=== PATIENT | female | born 1940 | race Caucasian/White ===

== ENCOUNTER → 2019-12-14 10:13 | Outpatient (BNVA) | payer MEDICARE, OTHER, SELFPAY | PROVIDERS: Family Provider Family Medicine; PCP Family Medicine; Visit Provider Anesthesiology | DX: M17.11 Unilateral primary osteoarthritis, right knee (principal); M47.816 Spondylosis without myelopathy or radiculopathy, lumbar region; M51.37 Other intervertebral disc degeneration, lumbosacral region; M47.9 Spondylosis, unspecified; S22.000S Wedge compression fracture of unspecified thoracic vertebra, sequela; S32.001D Stable burst fracture of unspecified lumbar vertebra, subsequent encounter for fracture with routine healing; X58.XXXS Exposure to other specified factors, sequela; X58.XXXD Exposure to other specified factors, subsequent encounter; Z79.891 Long term (current) use of opiate analgesic | CPT/HCPCS: 20610; 77003; G0463; J2001; J7325 ==

== ENCOUNTER → 2020-01-22 17:22 | Outpatient (BNVA) | payer MEDICARE, OTHER, SELFPAY | PROVIDERS: Family Provider Family Medicine; PCP Family Medicine; Visit Provider Family Medicine | DX: I10 Essential (primary) hypertension (principal); G25.81 Restless legs syndrome; M79.89 Other specified soft tissue disorders | CPT/HCPCS: 80048 ==

== ENCOUNTER → 2020-02-08 13:58 | Outpatient (BNVA) | payer MEDICARE, OTHER, SELFPAY | PROVIDERS: Family Provider Family Medicine; PCP Family Medicine; Visit Provider Anesthesiology | DX: G89.29 Other chronic pain (principal); M17.11 Unilateral primary osteoarthritis, right knee; M47.816 Spondylosis without myelopathy or radiculopathy, lumbar region; M47.9 Spondylosis, unspecified; K59.03 Drug induced constipation; T40.2X5A Adverse effect of other opioids, initial encounter; X58.XXXA Exposure to other specified factors, initial encounter; Z79.891 Long term (current) use of opiate analgesic | CPT/HCPCS: 99214 ==

== ENCOUNTER → 2020-05-26 09:49 | Outpatient (BNVA) | payer MEDICARE, OTHER, SELFPAY | PROVIDERS: Family Provider Family Medicine; PCP Family Medicine; Visit Provider Nurse Practitioner Family | DX: N39.0 Urinary tract infection, site not specified (principal); M25.552 Pain in left hip | CPT/HCPCS: 73502; 81000 ==

== ENCOUNTER → 2020-06-05 14:24 | Outpatient (BNVA) | payer MEDICARE, OTHER, SELFPAY | PROVIDERS: Family Provider Family Medicine; PCP Family Medicine; Visit Provider Anesthesiology | DX: Z11.59 Encounter for screening for other viral diseases (principal) | CPT/HCPCS: 87635 ==

== ENCOUNTER → 2020-07-18 10:15 | Outpatient (BNVA) | payer MEDICARE, OTHER, SELFPAY | PROVIDERS: Family Provider Family Medicine; PCP Family Medicine; Visit Provider Anesthesiology | DX: M17.11 Unilateral primary osteoarthritis, right knee (principal); M47.816 Spondylosis without myelopathy or radiculopathy, lumbar region; M51.37 Other intervertebral disc degeneration, lumbosacral region; S22.000S Wedge compression fracture of unspecified thoracic vertebra, sequela; X58.XXXS Exposure to other specified factors, sequela; S32.001D Stable burst fracture of unspecified lumbar vertebra, subsequent encounter for fracture with routine healing; X58.XXXD Exposure to other specified factors, subsequent encounter; Z79.891 Long term (current) use of opiate analgesic | CPT/HCPCS: 99214 ==

== ENCOUNTER → 2020-08-28 18:00 | Outpatient (BNVA) | payer MEDICARE, OTHER, SELFPAY | PROVIDERS: Family Provider Family Medicine; PCP Family Medicine; Visit Provider Family Medicine | DX: I10 Essential (primary) hypertension (principal); R53.83 Other fatigue; I95.1 Orthostatic hypotension; E56.9 Vitamin deficiency, unspecified; S22.000S Wedge compression fracture of unspecified thoracic vertebra, sequela; R63.4 Abnormal weight loss; R53.82 Chronic fatigue, unspecified | CPT/HCPCS: 80053; 80061; 82607; 82652; 84443; 85025 ==

== ENCOUNTER → 2020-09-10 10:44 | Outpatient (BNVA) | payer MEDICARE, OTHER, SELFPAY | PROVIDERS: Family Provider Family Medicine; PCP Family Medicine; Visit Provider Anesthesiology | DX: G89.29 Other chronic pain (principal); M25.561 Pain in right knee; M47.816 Spondylosis without myelopathy or radiculopathy, lumbar region; S22.000S Wedge compression fracture of unspecified thoracic vertebra, sequela; S32.001D Stable burst fracture of unspecified lumbar vertebra, subsequent encounter for fracture with routine healing; M51.37 Other intervertebral disc degeneration, lumbosacral region; M47.9 Spondylosis, unspecified; X58.XXXS Exposure to other specified factors, sequela; X58.XXXD Exposure to other specified factors, subsequent encounter; Z79.891 Long term (current) use of opiate analgesic | CPT/HCPCS: 99214 ==

== ENCOUNTER → 2020-09-19 13:27 | Outpatient (BNVA) | payer MEDICARE, OTHER, SELFPAY | PROVIDERS: Family Provider Family Medicine; PCP Family Medicine; Referring Provider Family Medicine; Visit Provider Family Medicine | DX: D50.8 Other iron deficiency anemias (principal) | CPT/HCPCS: 83540; 85007; 85018; 85027 ==

== ENCOUNTER → 2020-10-15 11:29 | Outpatient (BNVA) | payer MEDICARE, OTHER, SELFPAY | PROVIDERS: Family Provider Family Medicine; PCP Family Medicine; Visit Provider Family Medicine | DX: D50.8 Other iron deficiency anemias (principal); K59.03 Drug induced constipation; T40.2X5A Adverse effect of other opioids, initial encounter; I10 Essential (primary) hypertension; Z46.89 Encounter for fitting and adjustment of other specified devices; M47.9 Spondylosis, unspecified | CPT/HCPCS: 85025 ==

== ENCOUNTER → 2020-11-06 10:45 | Outpatient (BNVA) | payer MEDICARE, OTHER, SELFPAY | PROVIDERS: Family Provider Family Medicine; PCP Family Medicine; Visit Provider Nurse Practitioner | DX: G89.29 Other chronic pain (principal); M47.816 Spondylosis without myelopathy or radiculopathy, lumbar region; M25.561 Pain in right knee; K59.03 Drug induced constipation; T40.2X5A Adverse effect of other opioids, initial encounter; Z79.891 Long term (current) use of opiate analgesic | CPT/HCPCS: 99213 ==

== ENCOUNTER → 2021-01-10 08:11 | Outpatient (BNVA) | payer MEDICARE, OTHER, SELFPAY | PROVIDERS: Family Provider Family Medicine; PCP Family Medicine; Visit Provider Nurse Practitioner | DX: G89.29 Other chronic pain (principal); M51.37 Other intervertebral disc degeneration, lumbosacral region; M47.816 Spondylosis without myelopathy or radiculopathy, lumbar region; T40.2X5A Adverse effect of other opioids, initial encounter; X58.XXXA Exposure to other specified factors, initial encounter; S32.001D Stable burst fracture of unspecified lumbar vertebra, subsequent encounter for fracture with routine healing; X58.XXXD Exposure to other specified factors, subsequent encounter; S22.000S Wedge compression fracture of unspecified thoracic vertebra, sequela; X58.XXXS Exposure to other specified factors, sequela; M17.11 Unilateral primary osteoarthritis, right knee; Z79.891 Long term (current) use of opiate analgesic | CPT/HCPCS: 99212 ==

== ENCOUNTER → 2021-02-07 09:21 | Outpatient (BNVA) | payer MEDICARE, OTHER, SELFPAY | PROVIDERS: Family Provider Family Medicine; PCP Family Medicine; Visit Provider Anesthesiology | DX: G89.29 Other chronic pain (principal); M47.816 Spondylosis without myelopathy or radiculopathy, lumbar region; M51.37 Other intervertebral disc degeneration, lumbosacral region; M17.11 Unilateral primary osteoarthritis, right knee; S22.000S Wedge compression fracture of unspecified thoracic vertebra, sequela; X58.XXXS Exposure to other specified factors, sequela; S32.001D Stable burst fracture of unspecified lumbar vertebra, subsequent encounter for fracture with routine healing; X58.XXXD Exposure to other specified factors, subsequent encounter; Z79.891 Long term (current) use of opiate analgesic | CPT/HCPCS: 99214 ==

== ENCOUNTER → 2021-04-08 10:18 | Outpatient (BNVA) | payer MEDICARE, OTHER, SELFPAY | PROVIDERS: Family Provider Family Medicine; PCP Nurse Practitioner Family; Visit Provider Anesthesiology | DX: G89.29 Other chronic pain (principal); M47.816 Spondylosis without myelopathy or radiculopathy, lumbar region; M51.37 Other intervertebral disc degeneration, lumbosacral region; M17.11 Unilateral primary osteoarthritis, right knee; M47.9 Spondylosis, unspecified; S32.001D Stable burst fracture of unspecified lumbar vertebra, subsequent encounter for fracture with routine healing; S22.000S Wedge compression fracture of unspecified thoracic vertebra, sequela; X58.XXXD Exposure to other specified factors, subsequent encounter; X58.XXXS Exposure to other specified factors, sequela; Z79.891 Long term (current) use of opiate analgesic | CPT/HCPCS: 99214 ==

== ENCOUNTER → 2021-06-06 10:48 | Outpatient (BNVA) | payer MEDICARE, OTHER, SELFPAY | PROVIDERS: Family Provider Family Medicine; PCP Nurse Practitioner Family; Visit Provider Anesthesiology | DX: G89.29 Other chronic pain (principal); M47.816 Spondylosis without myelopathy or radiculopathy, lumbar region; M51.37 Other intervertebral disc degeneration, lumbosacral region; M47.9 Spondylosis, unspecified; M17.11 Unilateral primary osteoarthritis, right knee; Z79.891 Long term (current) use of opiate analgesic | CPT/HCPCS: 99214 ==

== ENCOUNTER 2021-08-05 11:54 | Outpatient (CLI) | payer MEDICARE, OTHER, SELFPAY ==
--- NOTE | 2021-08-05 12:02 | MM_ITS ---
WS: [id number] BILATERAL DIGITAL SCREENING MAMMOGRAPHY WITH CAD CLINICAL INFORMATION: SCREENING HISTORY: Screening mammogram. No current complaints. COMPARISON: TECHNIQUE: Bilateral CC and MLO views. FINDINGS: The breasts are composed of heterogeneous fibroglandular density tissue, which can limit the detectio n of small underlying mass lesions. No suspicious mass, asymmetry, calcifications, or architectural d istortion. No evidence of malignancy. Vascular calcification. A few punctate calcifications. MM/[place] [id number] IMPRESSION: BI-RADS: 2-Benign FOLLOW UP: 1 Year Follow-up Recommend return to annual screening mammography.
== END 2021-08-05 11:55 | disposition home or self-care (01) ==
LOC: RADSHAW 11:58
PROVIDERS: PCP Nurse Practitioner Family; Visit Provider Obstetrics & Gynecology
DX: G89.29 Other chronic pain (principal); M47.816 Spondylosis without myelopathy or radiculopathy, lumbar region; M51.37 Other intervertebral disc degeneration, lumbosacral region; M17.11 Unilateral primary osteoarthritis, right knee; S22.000S Wedge compression fracture of unspecified thoracic vertebra, sequela; X58.XXXS Exposure to other specified factors, sequela; S32.001D Stable burst fracture of unspecified lumbar vertebra, subsequent encounter for fracture with routine healing; X58.XXXD Exposure to other specified factors, subsequent encounter; Z79.891 Long term (current) use of opiate analgesic; Z12.31 Encounter for screening mammogram for malignant neoplasm of breast
CPT/HCPCS: 77067; 99214

== ENCOUNTER 2021-08-23 14:42 | Inpatient (IN) | payer MEDICARE, OTHER, SELFPAY ==
[2021-08-23] VITALS (15 sets, daily range): BP systolic 101–214; BP diastolic 77–104; PULSE 88–112; RESP 16–20; TEMP 36.6–37; O2SAT 91–100; BMI 22.7; BMI 26.7
--- NOTE | 2021-08-23 14:49 | XRR_ITS ---
PROCEDURE INFORMATION: Exam: XR Chest Exam date and time: 08/23/2021 2:49 PM Age: 80 years old Clinical indication: Cough and dyspnea; Additional info: Dyspnea/cough TECHNIQUE: Imaging protocol: XR of the chest. Views: 1 view. COMPARISON: [place] Thoracic [place] IV* [id number] 12/12/2018 12:55 PM FINDINGS: Lungs: No consolidative pulmonary infiltrates are noted. Pleural spaces: No pleural effusion. No pneumothorax. Heart/Mediastinum: No cardiomegaly. Vasculature: Tortuous, atherosclerotic thoracic aorta. Bones/joints: Old healed fracture of the proximal right humerus. Degenerative spine changes are noted. XR/XR chest 1V portable [id number] IMPRESSION: No acute cardiopulmonary disease demonstrated.
--- NOTE | 2021-08-23 14:49 | XRR_ITS ---
PROCEDURE INFORMATION: Exam: XR Left Hip Exam date and time: 08/23/2021 2:49 PM Age: 80 years old Clinical indication: Injury or trauma; Fall; Blunt trauma (contusions or hematomas); Left; Hip; Additional info: Pain fall TECHNIQUE: Imaging protocol: XR Left hip. Views: 2 or 3 views hip with pelvis when performed. COMPARISON: CR Pelvis AP 1 or 2 views* [id number] 06/17/2017 11:00 AM FINDINGS: Bones/joints: Acute intertrochanteric fracture of the left hip. The fracture appears mildly comminuted. Major fracture fragments are in varus alignment. No hip joint dislocation. Soft tissues: Unremarkable. XR/XR hip LT 2-3V wo/w pel* [id number] IMPRESSION: Acute intertrochanteric fracture of the left hip.
--- NOTE | 2021-08-23 14:49 | ECG_ITS ---
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 Measurements Intervals [place] Rate: 105 P: 72 MN: 204 QRS: 52 QRSD: 98 T: 82 QT: 315 QTc: 417 Interpretive Statements SINUS TACHYCARDIA No previous ECG available for comparison Electronically Signed On 08-23-2021 20:57:20 CDT by Lázaro Escobedo M.D. [id number]
--- NOTE | 2021-08-23 14:50 | ED_ITS ---
HPI - Fall General: Chief Complaint: Fall Stated Complaint: LEFT HIP PAIN S/P FALL Time Seen by Provider: 08/23/21 14:45 History of Present Illness: HPI Narrative: 80-year-old female presents emergency room complaining of left hip pain. She was at home moving around her kitchen with a walker stumbled with her walker and fell landing on her left side he had severe sharp pain in her left hip after that she presents here in a right lateral recumbent position to the c-collar and oxygen. She is satting normally on room air when the oxygen is removed she denies striking her denies is incontinent she has not had any chest pain she denies any other injuries no previous injuries to the affected hip. complaint: fall Onset (ago): minute(s) Fall from: standing Fall witnessed: no Place fall occurred: home Loss of consciousness: None Prolonged down time: no Symptoms prior to fall: none Context: tripped/slipped Location of injury: pelvis (Left hip) Severity: moderate Associated symptoms-after fall: Denies abdominal pain, chest pain, confusion, difficulty walking, headache(s), hematuria, lightheadedness, neck pain, numbness, short of breath, vertigo or weakness Review of Systems Const: Denies: fever(s), chills, body aches, change in appetite, fatigue or malaise ENMT: Denies: throat pain, ear or mastoid pain, nasal discharge or nasal congestion Card: Denies: chest pain or lightheadedness Resp: Denies: dyspnea, productive cough or non-productive cough GI: Denies: abdominal pain : Denies: hematuria Musc: Denies: neck pain Skin/Breast: Denies: rash or pruritus Neuro: Denies: headache(s), difficulty walking, vertigo or confusion PFSH ED PFSH: Medical History Acute lumbar back pain Chronic low back pain Chronic pain of right knee Encounter for long-term opiate analgesic use Hypertension Localized osteoarthritis of right knee Lumbar spondylosis 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, lumbosacral region Stable burst fracture of unspecified lumbar vertebra, subsequent encounter for fracture with routine healing Wedge compression fracture of unspecified thoracic vertebra, sequela Surgical History H/O shoulder surgery Family History Other No pertinent family history Social History Smoking and tobacco status: never smoked Second hand smoke exposure: No Alcohol intake: never History of recent travel: No Female Reproductive History: Spontaneous abortions: No Physical Exam Const: COMMON NORMALS: no acute distress GENERAL APPEARANCE: cooperative and comfortable ORIENTATION/CONSCIOUSNESS: Yes awake, Yes oriented to person, Yes oriented to place and Yes oriented to time HENMT: COMMON NORMALS: normocephalic, atraumatic and hearing grossly normal bilaterally HEAD & SCALP: normocephalic and atraumatic Neck/C-Spine: COMMON NORMALS: no JVD Resp: COMMON NORMALS: normal respiratory effort, No retractions, No use of accessory muscles and clear to auscultation bilaterally AUSCULTATION: clear to auscultation bilaterally Cardio: COMMON NORMALS: no JVD, regular rate, regular rhythm and No murmurs present (Cardio) RATE: regular rate RHYTHM: regular rhythm GI: COMMON NORMALS: Soft to palpation and No hepatosplenomegaly present AUSCULTATION: Yes normoactive bowel sounds PALPATION: Yes Soft to palpation, No Tenderness to palpation present (GI), No Guarding due to palpation present (GI) and Yes No hepatosplenomegaly present Extremity: COMMON NORMALS: normal to inspection, capillary refill normal, no clubbing, cyanosis or edema, no calf tenderness and no pedal edema Neuro: SENSORIUM/ORIENTATION: Yes oriented to person, Yes oriented to place and Yes oriented to time Skin: COMMON NORMALS: no rashes or lesions noted GENERAL SKIN EXAM: no rashes or lesions noted Course Vital Signs: Vital signs: Vital Signs Temperature 99.0 F 08/25/21 07:21 Pulse Rate 87 08/25/21 07:21 Respiratory Rate 17 08/25/21 07:21 Blood Pressure 136/68 08/25/21 07:21 Pulse Oximetry 93 08/25/21 07:21 MDM - Fall MDM Narrative: Medical decision making narrative: Initial x-ray there appears to be a greater trochanter fracture. Its not in the file but the first x-rays we took she was laying in her right lateral recumbent position would not move because of discomfort we given her pain medicine but her blood pressure dropped the very first x-ray of her hip there appeared to be an inferior and superior pubic ramus fracture however the is a reviewed the chart and signed off I cannot find that film. I was suspicious of an intertrochanteric fracture because of the large greater trochanteric fracture that I could see CT was done which confirmed the fracture. Patient has been admitted to Dr. Arboleda and is consulted to Ortho. Lab Data: Labs: Lab Results 08/23/21 08/23/21 08/23/21 15:18 15:18 15:18 WBC 14.8 10^3/uL H 10 ^3/uL (4.0-10.0) RBC 3.59 10^6/uL L 10 ^6/uL (4.1-5.3) Hgb 9.2 g/dL L g/dL (11.5-15.3) Hct 30.0 % L % (37.0-47.0) MCV 83.6 fl fl (81-99) MCH 25.6 pg L pg (28.0-34.0) MCHC 30.7 g/dL g/dL (30.0-36.0) RDW 12.7 % % (12.1-15.1) Plt Count 381 10^3/cmm 10^3 /cmm (130-400) MPV 9.1 fL fL (7.4-10.4) Neut % (Auto) 84.9 % % Lymph % (Auto) 6.8 % % [place] % (Auto) 6.3 % % Eos % (Auto) 1.1 % % Baso % (Auto) 0.3 % % Reticulocyte % (Au to) 2.3 % H % (0.5-2.0) Neut # (Auto) 12.57 10^3/uL H 1 0^3/uL (1.8-7.7) Lymph # (Auto) 1.0 10^3/uL 10^3/ uL (0.8-4.8) [place] # (Auto) 0.9 10^3/uL 10^3/ uL (0.2-0.9) Eos # (Auto) 0.2 10^3/uL 10^3/ uL (0.0-0.8) Baso # (Auto) 0.1 10^3/uL 10^3/ uL (0.0-0.1) Nucleated RBC % (a uto) 0 % % Nucleated RBCs # 0.0 /100WBC /100W BC Sodium 129 mmol/L L mmol /L (136-145) Potassium 4.1 mmol/L mmol/L (3.5-5.1) Chloride 97 mmol/L L mmol/ L (98-107) Carbon Dioxide 23 mmol/L mmol/L (22-29) Anion Gap 13.1 (5-19) BUN 19 mg/dL mg/dL (8-23) Creatinine 0.7 mg/dL mg/dL (0.5-0.9) GFR Calculation Not Reportable Glucose 142 mg/dL H mg/dL (65-115) Calculated Osmolal ity 273 mOsm/kg L mOs m/kg (285-295) Calcium 8.8 mg/dL mg/dL (8.5-10.5) Iron Ferritin Total Bilirubin 0.2 mg/dL mg/dL (0.15-1.2) AST 21 U/L U/L (0-32) ALT 15 U/L U/L (0-33) Alkaline Phosphata se 68 IU/L IU/L (35-105) NT-Pro-B Natriuret Pep Total Protein 5.9 g/dL L g/dL (6.6-8.7) Albumin 3.7 g/dL g/dL (3.5-5.2) Globulin 2.2 g/dL g/dL (1.3-4.6) Vitamin B12 Folate Urine Color Urine Appearance Urine pH Ur Specific Gravit y Urine Protein Urine Glucose (UA) Urine Ketones Urine Blood Urine Nitrate Urine Bilirubin Urine Urobilinogen Ur Leukocyte Patricia ase Urine RBC Urine WBC Ur Squamous Epith Cells Amorphous Sediment Urine Bacteria 08/23/21 08/23/21 08/23/21 15:18 15:18 16:20 WBC RBC Hgb Hct MCV MCH MCHC RDW Plt Count MPV Neut % (Auto) Lymph % (Auto) [place] % (Auto) Eos % (Auto) Baso % (Auto) Reticulocyte % (Au to) Neut # (Auto) Lymph # (Auto) [place] # (Auto) Eos # (Auto) Baso # (Auto) Nucleated RBC % (a uto) Nucleated RBCs # Sodium Potassium Chloride Carbon Dioxide Anion Gap BUN Creatinine GFR Calculation Glucose Calculated Osmolal ity Calcium Iron 21 ug/dL L ug/dL (37-145) Ferritin 14 ng/mL L ng/mL (15-150) Total Bilirubin AST ALT Alkaline Phosphata se NT-Pro-B Natriuret Pep 262 pg/mL pg/mL (0-450) Total Protein Albumin Globulin Vitamin B12 434 pg/mL pg/mL (232-1245) Folate 5.1 ng/mL ng/mL (4.8-37.3) Urine Color Yellow (Yellow) Urine Appearance Cloudy (CLEAR) Urine pH 6 (5-7) Ur Specific Gravit y 1.015 (1.005-1.030) Urine Protein Neg (Negative) Urine Glucose (UA) Norm (Normal) Urine Ketones Negative (Negative) Urine Blood Neg (Negative) Urine Nitrate Positive H (Negative) Urine Bilirubin Neg (Negative) Urine Urobilinogen Norm mg/dL mg/dL (Negative) Ur Leukocyte Patricia ase Negative (Negative) Urine RBC None /hpf /hpf (0-2) Urine WBC 25-40 /hpf H /hpf (0-5) Ur Squamous Epith Cells 0-4 /hpf H /hpf (0-5) Amorphous Sediment Not Reportable Urine Bacteria 4+ /hpf H /hpf (NONE) Discharge Plan Discharge Patient Disposition: Admitted As Inpatient Admit Provider: Juan Francisco Callahan Clinical Impression: Fracture of hip, left, closed, Fall Condition: Stable Coding Level of Care Code ED Freight Clerk for Chg Fwd Exam Comprehensive
[2021-08-23] MEDS: fentaNYL 50 mcg/mL INJ 2mL IVP (15:10)
[2021-08-23 15:21] LABS: Basophils # 0.1 10^3/uL (0.0-0.1); Basophils % 0.3 %; Eosinophils # 0.2 10^3/uL (0.0-0.8); Eosinophils % 1.1 %; Hemoglobin 9.2 g/dL (11.5-15.3); Lymphocytes % 6.8 %; Mean Corpuscular HGB Conc 30.7 g/dL (30.0-36.0); Mean Corpuscular Hemoglobin 25.6 pg (28.0-34.0); Mean Corpuscular Volume 83.6 fl (81-99); Mean Platelet Volume 9.1 fL (7.4-10.4); Monocytes # 0.9 10^3/uL (0.2-0.9); Monocytes % 6.3 %; Neutrophils # 12.57 10^3/uL (1.8-7.7); Neutrophils % 84.9 %; Nucleated Red Blood Cells % 0 %; Platelet Count 381 10^3/cmm (130-400); Red Blood Count 3.59 10^6/uL (4.1-5.3); Red Cell Distribution Width 12.7 % (12.1-15.1); White Blood Count 14.8 10^3/uL (4.0-10.0)
[2021-08-23] MEDS: sodium chloride 0.9% 500 ML 999 ML IV (15:43)
[2021-08-23] MEDS: fentaNYL 50 mcg/mL INJ 2mL 25 MCG IVP (15:44)
[2021-08-23 15:48] LABS: Alanine Aminotransferase 15 U/L (0-33); Albumin Level 3.7 g/dL (3.5-5.2); Alkaline Phosphatase 68 IU/L (35-105); Anion Gap 13.1 (5-19); Aspartate Amino Transferase 21 U/L (0-32); Blood Urea Nitrogen 19 mg/dL (8-23); Calcium 8.8 mg/dL (8.5-10.5); Carbon Dioxide 23 mmol/L (22-29); Chloride 97 mmol/L (98-107); Globulin 2.2 g/dL (1.3-4.6); Glucose 142 mg/dL (65-115); Osmolality Calculated 273 mOsm/kg (285-295); Potassium 4.1 mmol/L (3.5-5.1); Sodium 129 mmol/L (136-145); Total Bilirubin 0.2 mg/dL (0.15-1.2); Total Protein 5.9 g/dL (6.6-8.7)
[2021-08-23 17:00] LABS: Add Urine Microscopic? YES; Bilirubin Urine Neg (Negative); Blood Urine Neg (Negative); Glucose Urine UA Norm (Normal); Ketones Urine Negative (Negative); Leukocyte Esterase Urine Negative (Negative); Nitrate Urine Positive (Negative); Protein Urine Neg (Negative); Specific Gravity, Urine 1.015 (1.005-1.030); Urine Appearance Cloudy (CLEAR); Urine Color Yellow (Yellow); Urobilinogen Urine Norm (Negative); pH Urine 6 (5-7)
[2021-08-23 17:04] LABS: Add Urine Culture? Yes; Bacteria Urine 4+ /hpf; Squamous Epithelial Cell Urine 0-4 /hpf (0-5); WBC Urine 25-40 /hpf (0-5)
--- NOTE | 2021-08-23 17:35 | CTR_ITS ---
PROCEDURE INFORMATION: Exam: CT Left Lower Extremity Without Contrast, Hip Exam date and time: 08/23/2021 5:35 PM Age: 80 years old Clinical indication: Injury or trauma; Blunt trauma; Left; Patient HX: L hip FX - fall; Additional info: Greater trochanter FX TECHNIQUE: Imaging protocol: CT of the Left lower extremity without contrast was performed. Exam focused on the hip. Radiation optimization: All CT scans at this facility use at least one of these dose optimization techniques: automated exposure control; mA and/or kV adjustment per patient size (includes targeted exams where dose is matched to clinical indication); or iterative reconstruction. COMPARISON: CR (PELVIS, ) 08/23/2021 3:20 PM RADIATION DOSE METRICS: Total DLP (mGy-cm): 534.84 FINDINGS: Bones/joints: Acute intertrochanteric fracture of the left hip. Fracture fragments are in mild varus alignment. No hip dislocation. The acetabulum is intact. There are old healed fractures of the left pubic rami. Soft tissues: Mild soft tissue edema noted adjacent to the fracture. No focal hematoma demonstrated. CT/CT hip LT wo con* [id number] IMPRESSION: Acute intertrochanteric fracture of the left hip. Radiation Dose CTDIVOL = (mGy): DLP = 534.84 (mGy-cm)
[2021-08-23] MEDS: morphine 4 mg/mL SDV 1 mL 6 MG IVP (17:52)
--- NOTE | 2021-08-23 18:26 | PM.HP ---
Providers/Chief Complaint Primary Care Provider: Yanet White NP Chief Complaint: LEFT HIP PAIN S/P FALL History of Present Illness Sharri Calvo is a 80 year old female with a past medical history of chronic anemia, chronic low back pain, chronic right knee pain, restless leg, hypertension, who presents to [facility] for follow-up. Patient tells me that today she was preparing a meal for herself, when her frozen dinner fell to the floor, she got in her wheeled walker, sat in a wheel walker and reached down to the floor to pick it up when she fell forward,, she hit her left hip, and her head towards the floor, denies passing out, now she complains of severe left hip pain, in the emergency room she was found to have hyponatremia, UTI, and a left trochanteric hip fracture, she is going down for CT of the hip, Dr. Hayden has been consulted, hospitalist team was called for medical management. Currently she is alert and oriented x3, follows all commands, complains of left hip pain, no headache, blurry vision, no chest pain, no palpitations, denies cardiovascular history, denies a history of lung disease, denies history of strokes, no history of diabetes. Review of Systems Const: Denies: fever(s) Card: Denies: chest pain Resp: Denies: dyspnea GI: Denies: abdominal pain : Denies: flank pain Musc: Reports: back pain, extremity pain and joint pain Skin/Breast: Denies: rash Neuro: Denies: headache(s) Psych: Denies: anxiety Medications/Allergies Home Medications Medication Instructions Recorded Confirmed Last Taken Type aspirin 81 mg tablet,delayed 81 mg PO DAILY 12/01/19 08/23/21 08/22/21 History release ibuprofen 800 mg tablet See Rx Instructions .ROUTE 06/27/21 08/23/21 Unknown Rx .COMPLEX #90 tab hydrocodone 10 mg-acetaminophen 2 tab PO TID PRN 30 Days #180 tab 08/05/21 08/23/21 Unknown Rx 325 mg tablet hydrocodone 10 mg-acetaminophen 2 tab PO TID PRN 30 Days #180 tab 08/05/21 08/23/21 08/23/21 Rx 325 mg tablet Allergies Allergy/AdvReac Type Severity Reaction Status Date / Time No Known Allergies Allergy Verified 08/05/21 11:36 PFSH Acute PFSH: Medical History Acute lumbar back pain Chronic low back pain Chronic pain of right knee Encounter for long-term opiate analgesic use Hypertension Localized osteoarthritis of right knee Lumbar spondylosis 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, lumbosacral region Stable burst fracture of unspecified lumbar vertebra, subsequent encounter for fracture with routine healing Wedge compression fracture of unspecified thoracic vertebra, sequela Surgical History H/O shoulder surgery Family History Other No pertinent family history Social History Smoking and tobacco status: never smoked Second hand smoke exposure: No Alcohol intake: never History of recent travel: No Female Reproductive History: Spontaneous abortions: No Vitals/I&O/Wt Last Vital Signs Temp 98.1 F 08/23/21 18:13 Pulse 102 H 08/23/21 18:20 Resp 18 08/23/21 18:20 BP 180/96 08/23/21 18:20 Pulse Ox 99 08/23/21 18:20 Weight last 48 hrs Weight 65.771 kg Physical Exam Const: COMMON NORMALS: no acute distress and patient oriented x3 HENMT: COMMON NORMALS: normocephalic HEAD & SCALP: normocephalic Eye: COMMON NORMALS: Equal, round and reactive pupils present and EOMs intact bilaterally GENERAL EYE: appearance normal, both eyes and all related structures PUPIL: Yes Equal, round and reactive pupils present Neck/C-Spine: COMMON NORMALS: full ROM and no lymphadenopathy THYROID: Thyroid normal Lymph: LYMPHATIC: no lymphadenopathy noted Resp: COMMON NORMALS: normal respiratory effort, No retractions, No use of accessory muscles and clear to auscultation bilaterally AUSCULTATION: clear to auscultation bilaterally Cardio: COMMON NORMALS: regular rate, regular rhythm, S1 normal heart sound present, S2 normal heart sound present, No gallops present (Cardio), No clicks present (Cardio) and No murmurs present (Cardio) RATE: regular rate RHYTHM: regular rhythm HEART SOUNDS: S1 normal heart sound present and S2 normal heart sound present GI: COMMON NORMALS: Normal to inspection, nondistended, normoactive bowel sounds present, Soft to palpation and non-tender Extremity: COMMON NORMALS: normal to inspection, full ROM and no pedal edema NARRATIVE EXTREMITY EXAM: Left hip pain, pain with RANGE OF MOTION Neuro: COMMON NORMALS: patient oriented x3, CN's II-XII intact bilaterally, moves all extremities and no focal motor deficits Psych: COMMON NORMALS: mental status grossly normal, Normal thought process present and cooperative THOUGHT PROCESS: Normal thought process present Data : 08/23/21 15:18 08/23/21 15:18 A&P Assessment and plan (1) Hyponatremia: -Hyponatremia, likely secondary to dehydration, continue IV fluids Status: Acute (2) UTI (urinary tract infection): -History of recurrent UTIs, has been Cipro over the last 2 weeks -Failure of outpatient antibiotics, start Zosyn for possible resistant organism Status: Acute (3) Left hip pain: -X-ray of the hip shows greater trochanteric left hip fracture, will do a CT for better delineation -Orthopedic service called for consult -Morphine for pain control -Full code -Protonix for GI prophylaxis -SCDs for DVT prophylaxis, anticoagulation currently relatively contraindicated due to anemia Status: Acute (4) Fall: -Sounds like a mechanical fall -But her UTI and hyponatremia could be playing a role -CT of the head given head trauma Status: Acute (5) Acute on chronic anemia: -She has a history of chronic, hemoglobin as low as 6.8 -She had seen her outpatient physician, declined further work-up, declined GI evaluation, denies any transfusions, denies any EGD, denies any colonoscopy, denies any bloody or black stools, denies lightheadedness, no dizziness, no family or personal history of colon cancer or GI cancer, no history of bone marrow cancers -Hold Lovenox due to hemoglobin being 9.2, concerning for possible slow GI bleed -Protonix, Carafate -Iron studies Status: Acute Attestations Medical Necessity Statement*: Patient requires hospitalization,hip fracture, greater than 2 midnights, anemia, UTI, hyponatremia Coding Level of Care Code 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
--- NOTE | 2021-08-23 18:29 | CTR_ITS ---
PROCEDURE INFORMATION: Exam: CT Head Without Contrast Exam date and time: 08/23/2021 6:29 PM Age: 80 years old Clinical indication: Injury or trauma; Blunt trauma (contusions or hematomas); Without loss of consciousness; Patient HX: Fall denies loc; Additional info: Fall, mild head trau, a TECHNIQUE: Imaging protocol: Computed tomography of the head without contrast. Radiation optimization: All CT scans at this facility use at least one of these dose optimization techniques: automated exposure control; mA and/or kV adjustment per patient size (includes targeted exams where dose is matched to clinical indication); or iterative reconstruction. COMPARISON: No relevant prior studies available. RADIATION DOSE METRICS: Total DLP (mGy-cm): 2033.09 FINDINGS: Brain: There is diffuse cerebral atrophy and chronic microvascular white matter disease. There is no acute intracranial hemorrhage. Cerebral ventricles: There is mild ex vacuo dilation of the lateral ventricles. The basal cisterns are unremarkable. Paranasal sinuses: Air-fluid levels in the maxillary sinuses. Diffuse mucosal thickening in the ethmoid sinuses. Air-fluid levels in the sphenoid sinuses. Mastoid air cells: The mastoid air cells are clear. Bones/joints: The calvarium is intact. Soft tissues: The visible extracranial soft tissues are unremarkable. CT/CT head wo con* [id number] IMPRESSION: 1. No acute intracranial abnormality. 2. Probable acute bilateral maxillary, sphenoid and ethmoid sinusitis. Radiation Dose CTDIVOL = (mGy): DLP = 2033.09 (mGy-cm)
[2021-08-23 18:52] LABS: Reticulocyte % 2.3 % (0.5-2.0)
[2021-08-23 19:02] LABS: LAB Peripheral Smear Sent for Review
[2021-08-23 19:19] LABS: Folate Level 5.1 ng/mL (4.8-37.3)
[2021-08-23 19:22] LABS: Ferritin 14 ng/mL (15-150); Iron 21 ug/dL (37-145); NT Pro B Type Natriuretic Pept 262 pg/mL (0-450); Vitamin B12 434 pg/mL (232-1245)
--- NOTE | 2021-08-23 20:22 | ECG_ITS ---
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 Measurements Intervals [place] Rate: 94 P: 55 HI: 219 QRS: 1 QRSD: 92 T: 46 QT: 344 QTc: 432 Interpretive Statements SINUS RHYTHM WITH FIRST DEGREE AV BLOCK Compared to ECG 08/23/2021 15:46:34 First degree AV block now present Sinus tachycardia no longer present Electronically Signed On 08-24-2021 21:50:28 CDT by Lázaro Escobedo M.D. [id number]
[2021-08-23] MEDS: piperacillin-tazobactam 3.375 GM in sodium chloride 0.9% (plus) 50 ML IV (20:32)
[2021-08-23] MEDS: sucralfate 1 gm Tablet PO (20:33)
[2021-08-23] MEDS: pantoprazole DR 40 mg Tablet PO (20:33)
[2021-08-23] MEDS: sodium chloride 0.9% 1,000 ML 75 ML IV (20:34)
[2021-08-23] MEDS: morphine 4 mg/mL SDV 1 mL 2 MG IVP (20:51)
[2021-08-23 20:52] LABS: Troponin(5th) Baseline 61 ng/L (0-10)
[2021-08-23] MEDS: HYDROcodone-acetaminophen 10-325 mg Tablet 1 TAB PO (21:48)
[2021-08-23 23:21] LABS: Troponin 5 2HR 49.23 ng/L (0-10)
[2021-08-24] VITALS (19 sets, daily range): BP systolic 111–180; BP diastolic 68–84; PULSE 85–106; RESP 16–19; TEMP 36.3–37.2; O2SAT 92–96
--- NOTE | 2021-08-24 00:22 | ECG_ITS ---
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 Measurements Intervals [place] Rate: 97 P: -18 [place]: 187 QRS: 0 QRSD: 94 T: 43 QT: 357 QTc: 454 Interpretive Statements SINUS RHYTHM SEPTAL MYOCARDIAL INFARCTION , PROBABLY OLD [40+ ms Q WAVE IN V1/V2] Compared to ECG 08/23/2021 21:46:50 Myocardial infarct finding now present First degree AV block no longer present Electronically Signed On 08-24-2021 21:49:46 CDT by Lázaro Escobedo M.D. [id number]
[2021-08-24] MEDS: morphine 4 mg/mL SDV 1 mL 2 MG IVP ×3 (00:38→09:09)
[2021-08-24] MEDS: HYDROcodone-acetaminophen 10-325 mg Tablet 1 TAB PO ×4 (02:36→20:10)
[2021-08-24 03:04] LABS: Basophils % 0.2 %; Eosinophils # 0.1 10^3/uL (0.0-0.8); Eosinophils % 0.9 %; Hematocrit 24.4 % (37.0-47.0); Hemoglobin 7.6 g/dL (11.5-15.3); Lymphocytes # 1.6 10^3/uL (0.8-4.8); Lymphocytes % 15.4 %; Mean Corpuscular HGB Conc 31.1 g/dL (30.0-36.0); Mean Corpuscular Hemoglobin 25.8 pg (28.0-34.0); Mean Corpuscular Volume 82.7 fl (81-99); Mean Platelet Volume 9.1 fL (7.4-10.4); Monocytes # 0.9 10^3/uL (0.2-0.9); Monocytes % 8.7 %; Neutrophils # 7.58 10^3/uL (1.8-7.7); Neutrophils % 74.5 %; Nucleated Red Blood Cells % 0 %; Platelet Count 298 10^3/cmm (130-400); Red Blood Count 2.95 10^6/uL (4.1-5.3); Red Cell Distribution Width 12.9 % (12.1-15.1); White Blood Count 10.2 10^3/uL (4.0-10.0)
[2021-08-24 03:30] LABS: Procalcitonin 0.11 ng/mL (0-0.5); Thyroid Stimulating Hormone 0.89 uIU/mL (0.27-4.20)
[2021-08-24 03:42] LABS: Alanine Aminotransferase 12 U/L (0-33); Alkaline Phosphatase 55 IU/L (35-105); Anion Gap 14.3 (5-19); Aspartate Amino Transferase 20 U/L (0-32); Blood Urea Nitrogen 12 mg/dL (8-23); Calcium 8.1 mg/dL (8.5-10.5); Carbon Dioxide 22 mmol/L (22-29); Chloride 98 mmol/L (98-107); Globulin 1.6 g/dL (1.3-4.6); Glucose 110 mg/dL (65-115); Magnesium 1.8 mg/dL (1.7-2.3); Osmolality Calculated 270 mOsm/kg (285-295); Phosphorus 3.4 mg/dL (2.5-4.5); Potassium 4.3 mmol/L (3.5-5.1); Sodium 130 mmol/L (136-145); Total Bilirubin 0.4 mg/dL (0.15-1.2); Total Protein 4.6 g/dL (6.6-8.7)
[2021-08-24] MEDS: piperacillin-tazobactam 3.375 GM in sodium chloride 0.9% (plus) 50 ML IV ×2 (04:22→16:03)
[2021-08-24 05:36] LABS: Estmated Average Glucose 105; Hemoglobin A1C 5.3 % (4.0-6.0)
[2021-08-24] MEDS: pantoprazole DR 40 mg Tablet PO ×2 (06:09→17:31)
[2021-08-24] MEDS: aspirin 81 mg EC Tablet PO (09:09)
[2021-08-24] MEDS: sucralfate 1 gm Tablet PO ×3 (10:09→20:10)
--- NOTE | 2021-08-24 11:17 | PC.OT ---
OT ro held, waiting for ortho consult
--- NOTE | 2021-08-24 11:37 | PM.PN ---
Subjective Subjective: Interval history: This morning patient was examined, she tells me that she continues to have breakthrough pain, no fevers overnight, no nausea, no vomiting, she denies any bloody or black stools, she tells me that she is anemic because she has not been eating well since her Vitals/I&O/Wt Last Vital Signs Temp 98.9 F 08/24/21 08:22 Pulse 85 08/24/21 08:22 Resp 17 08/24/21 09:09 BP 164/81 08/24/21 08:22 Pulse Ox 92 08/24/21 08:22 08/23/21 08/24/21 08/24/21 22:59 06:59 14:59 Intake Total 990 / 990 Output Total 600 / 600 Balance -600 / -600 990 / 990 Weight last 48 hrs Weight 77.564 kg Weight 65.771 kg Physical Exam Const: COMMON NORMALS: no acute distress and patient oriented x3 Neck/C-Spine: COMMON NORMALS: no JVD Resp: COMMON NORMALS: normal respiratory effort, No retractions, No use of accessory muscles and clear to auscultation bilaterally AUSCULTATION: clear to auscultation bilaterally Cardio: COMMON NORMALS: no JVD, regular rate, regular rhythm, S1 normal heart sound present and S2 normal heart sound present RATE: regular rate RHYTHM: regular rhythm HEART SOUNDS: S1 normal heart sound present and S2 normal heart sound present GI: COMMON NORMALS: Normal to inspection, nondistended, normoactive bowel sounds present, Soft to palpation and non-tender PALPATION: Yes Soft to palpation Extremity: COMMON NORMALS: no pedal edema NARRATIVE EXTREMITY EXAM: Left hip pain, pain with RANGE OF MOTION Neuro: COMMON NORMALS: patient oriented x3 Psych: COMMON NORMALS: mental status grossly normal Data : 08/24/21 02:40 08/24/21 02:40 Micro: Microbiology 08/23/21 16:20 Urine Culture - Preliminary Urine,Clean Catch Gram Negative Rods A&P Assessment and plan (1) Hyponatremia: -Hyponatremia, 130, likely secondary to dehydration, stop fluids, general diet Status: Acute (2) UTI (urinary tract infection): -History of recurrent UTIs, has been Cipro over the last 2 weeks -Failure of outpatient antibiotics, start Zosyn for possible resistant organism Status: Acute (3) Left hip pain: -X-ray of the hip shows greater trochanteric left hip fracture -CT scan of the left hip shows Bones/joints: Acute intertrochanteric fracture of the left hip. Fracture fragments are in mild varus alignment. No hip dislocation. The acetabulum is intact. There are old healed fractures of the left pubic rami. Soft tissues: Mild soft tissue edema noted adjacent to the fracture. No focal hematoma demonstrated. -Orthopedic service called for consult, n.p.o. midnight, surgical intervention tomorrow morning -We will change to Dilaudid for pain, [place] for breakthrough pain, -Full code -Protonix for GI prophylaxis -SCDs for DVT prophylaxis, anticoagulation currently relatively contraindicated due to anemia Status: Acute (4) Fall: -Sounds like a mechanical fall -But her UTI and hyponatremia could be playing a role Status: Acute (5) Acute on chronic anemia: -She has a history of chronic, hemoglobin as low as 6.8 -She had seen her outpatient physician, declined further work-up, declined GI evaluation, denies any transfusions, denies any EGD, denies any colonoscopy, denies any bloody or black stools, denies lightheadedness, no dizziness, no family or personal history of colon cancer or GI cancer, no history of bone marrow cancers -Iron studies reveal iron deficiency anemia -Possibly secondary slow GI bleed and or bone marrow deficiency -Hemoglobin 7.6, will transfuse 1 unit PRBC -Protonix, Carafate -Hold blood thinners Status: Acute Attestations Medical Necessity Statement*: Patient requires hospitalization, inpatient, greater than 2 midnights, for fall, left hip fracture, iron deficiency anemia, UTI, hyponatremia Coding Level of Care Code Acute Insurance Risk Surveyor for [facility] Fwd Diagnoses Hyponatremia E87.1 UTI (urinary tract infection) N39.0 Left hip pain M25.552 Fall W19.XXXA Acute on chronic anemia D64.9
--- NOTE | 2021-08-24 11:54 | USCV_ITS ---
Sharri Calvo Age: 80 Gender: F : 1940 Exam Date: 08/24/2021 15:20 Ordering Phys: Foreign Preciado MD Technologist: Rosa Bush Exam Location: [facility] – [place] Indication: murmur BP: 167 / 84 HR: 93 Rhythm: Sinus Technical Quality: Fair MEASUREMENTS (Male / Female) Normal Values 2D ECHO LV Diastolic Diameter PLAX 3.7 cm 4.2 - 5.9 / 3.9 - 5.3 cm LV Systolic Diameter PLAX 3.0 cm LV Chamber Size 4.0 cm IVS Diastolic Thickness 1.8 cm 0.6 - 1.0 / 0.6 - 0.9 cm IVS Systolic Thickness 1.8 cm LVPW Diastolic Thickness 1.4 cm 0.6 - 1.0 / 0.6 - 0.9 cm LVPW Systolic Thickness 1.3 cm RV Chamber Size 3.3 cm LVOT Diameter 1.8 cm LV Ejection Fraction 2D Teich 37.8 % LV Ejection Fraction MOD 2C 67.6 % LV Ejection Fraction 2C AL 70.8 % LA Diameter 2.4 cm LA Width 3.4 cm LA Height 4.9 cm RA Width 2.7 cm RA Height 4.9 cm Aorta at Sinotubular Diameter 2.5 cm M-MODE LV Diastolic Diameter MM 6.0 cm 4.2 - 5.9 / 3.9 - 5.3 cm LV Systolic Diameter MM 3.8 cm LV Ejection Fraction MM Teich 65.3 % IVS Diastolic Thickness MM 1.2 cm 0.6 - 1.0 / 0.6 - 0.9 cm IVS Systolic Thickness MM 1.8 cm LVPW Diastolic Thickness MM 1.4 cm 0.6 - 1.0 / 0.6 - 0.9 cm LVPW Systolic Thickness MM 1.7 cm Aortic Annulus Diameter 3.1 cm LA Ao Ratio MM 1.0 DOPPLER AV Peak Velocity 174.0 cm/s LVOT Peak Velocity 101.0 cm/s AV Area Cont Eq vti 1.4 cm squared AV Area Cont Eq pk 1.4 cm squared MV Area PHT 4.4 cm squared Mitral E to A Ratio 0.8 MV E' Velocity 46.0 cm/s Mitral E to MV E' Ratio 8.6 Mitral E to LV E' Lateral Ratio 8.6 Mitral E to LV E' Septal Ratio 8.8 TR Peak Velocity 252.5 cm/s TR Peak Gradient 25.5 mmHg TR Mean Velocity 222.1 cm/s TR Mean Gradient 19.9 mmHg TR Velocity Time Integral 70.3 cm TV Peak E Velocity 63.0 cm/s Right Atrial Pressure 3.0 mmHg Pulmonary Artery Systolic Pressu 28.5 mmHg FINDINGS Left Ventricle Normal left ventricular size. LV systolic function is normal with EF of 60-65%. No regional wall motion abnormalities. Grade 1 diastolic dysfunction Right Ventricle The right ventricle is normal in size and function. Right Atrium The right atrium is normal in size. Left Atrium The left atrium is normal in size. Mitral Valve Structurally normal mitral valve without significant stenosis or prolapse. There is trace mitral regurgitation. Aortic Valve Structurally normal aortic valve without significant sclerosis or stenosis. There is no aortic regurgitation. Tricuspid Valve Structurally normal tricuspid valve without significant stenosis. Mild tricuspid regurgitation. RVSP is 25-30mmHg Pulmonic Valve Structurally normal pulmonic valve without significant stenosis. There is no pulmonic regurgitation. Pericardium Normal pericardium without effusion. Aorta Normal ascending aorta dimension. CONCLUSIONS LV systolic function is normal with EF of 60-65% Grade 1 diastolic dysfunction Mild tricuspid regurgitation No comparison studies are available Lázaro Escobedo MD (Electronically Signed) Final Date: 26 August 2021 17:08 S
[2021-08-24] MEDS: HYDROmorphone 1 mg/mL INJ 1 mL IVP ×3 (13:26→21:39)
--- NOTE | 2021-08-24 13:51 | PC.NURSE ---
Retimed Zosyn due to patient not wanting a new IV started and blood currently running in her IV.
[2021-08-24] MEDS: Fleet Enema 133 mL Enema PR (14:14)
[2021-08-24] MEDS: lanolin oint 7 gm 1 APPLIC TOPICAL (14:16)
[2021-08-24] MEDS: sodium chloride 0.9% (100 ml) 100 ML 125 ML (14:29)
--- NOTE | 2021-08-24 15:29 | PC.PT ---
PT evaluation on hold pending orthopedic intervention; will follow orders from orthopedist.
--- NOTE | 2021-08-24 17:26 | PC.NURSE ---
Shift Note Frequent safety and comfort rounds continue. Orders and/or nursing care completed as indicated. Patient monitored for response to intervention and treatment(s). Education provided includes education on pain medications. Patient verbalized understanding. PAtient's pain has not gotten any lower than a 5-6 on the 0-10 pain scale. Patient received 1 unit of packed red blood cells for 7.6 hemoglobin. Patient is currently resting in bed watching television. Will continue to monitor.
[2021-08-25] VITALS (28 sets, daily range): BP systolic 76–194; BP diastolic 55–93; PULSE 61–101; RESP 9–20; TEMP 36.4–38.1; O2SAT 90–100
--- NOTE | 2021-08-25 | SCC_ITS ---
Procedure Done: Open reduction internal fixation left hip with intramedullary device 57.0 seconds of fluoroscopic guidance, for a cumulative dose of 9.40 mGy, was provided to Dr. Hayden by the radiology department. C-arm images of the LEFT hip were saved for the patient's permanent record. [facility]
[2021-08-25] MEDS: piperacillin-tazobactam 3.375 GM in sodium chloride 0.9% (plus) 50 ML IV ×2 (00:55→08:36)
[2021-08-25] MEDS: HYDROmorphone 1 mg/mL INJ 1 mL IVP ×3 (02:05→09:58)
--- NOTE | 2021-08-25 03:05 | PC.NURSE ---
PT refuses repositioning in the bed, nurse educated pt on the possibility of skin breakdown, pt allowed nurse and PERSONAL BANKING ADVISOR to pull her up a little in bed but refuses repositioning. Pt AAOX4.
[2021-08-25] MEDS: HYDROcodone-acetaminophen 10-325 mg Tablet 1 TAB PO ×2 (04:11→12:31)
[2021-08-25] MEDS: sucralfate 1 gm Tablet PO (06:03)
[2021-08-25] MEDS: pantoprazole DR 40 mg Tablet PO (06:03)
[2021-08-25 06:06] LABS: Basophils # 0.1 10^3/uL (0.0-0.1); Basophils % 0.6 %; Eosinophils # 0.4 10^3/uL (0.0-0.8); Eosinophils % 4.1 %; Hematocrit 27.7 % (37.0-47.0); Hemoglobin 8.7 g/dL (11.5-15.3); Lymphocytes # 1.3 10^3/uL (0.8-4.8); Lymphocytes % 13.4 %; Mean Corpuscular HGB Conc 31.4 g/dL (30.0-36.0); Mean Corpuscular Hemoglobin 26.2 pg (28.0-34.0); Mean Corpuscular Volume 83.4 fl (81-99); Mean Platelet Volume 9.5 fL (7.4-10.4); Monocytes % 10.5 %; Neutrophils # 6.86 10^3/uL (1.8-7.7); Nucleated Red Blood Cells % 0 %; Platelet Count 245 10^3/cmm (130-400); Red Blood Count 3.32 10^6/uL (4.1-5.3); Red Cell Distribution Width 13.2 % (12.1-15.1); White Blood Count 9.7 10^3/uL (4.0-10.0)
[2021-08-25 06:37] LABS: Alanine Aminotransferase 10 U/L (0-33); Albumin Level 2.9 g/dL (3.5-5.2); Alkaline Phosphatase 53 IU/L (35-105); Anion Gap 11.9 (5-19); Aspartate Amino Transferase 16 U/L (0-32); Blood Urea Nitrogen 12 mg/dL (8-23); Carbon Dioxide 23 mmol/L (22-29); Chloride 98 mmol/L (98-107); Globulin 2.1 g/dL (1.3-4.6); Glucose 106 mg/dL (65-115); Magnesium 1.9 mg/dL (1.7-2.3); Osmolality Calculated 268 mOsm/kg (285-295); Potassium 3.9 mmol/L (3.5-5.1); Sodium 129 mmol/L (136-145); Total Bilirubin 0.3 mg/dL (0.15-1.2)
--- NOTE | 2021-08-25 07:22 | PC.NURSE ---
Patient is refusing to wear the SCD's on her legs because she says that they hurt her legs to bad.
--- NOTE | 2021-08-25 09:56 | P.CONIM_ITS ---
Providers/Reason For Consult Consulting Physician/Specialty*: Kale Hayden MD; orthopedic surgery Reason for Consult*: Left hip fracture Attending Physician: Hayden Schilling MD Primary Care Provider: Yanet White NP History of Present Illness History of Present Illness Sharri Calvo is a 80 year old female who tripped and fell at home she was transferred here to our emergency room where radiographs revealed a left intratrochanteric hip fracture. She is administered to admit to medicine she lives alone. for anticipated surgical treatment of the left hip and placement. The patient states she previously used a walker at home. Meds/Allergies Home Medications and Allergies Home Medications Medication Instructions Recorded Confirmed Last Taken Type aspirin 81 mg tablet,delayed 81 mg PO DAILY 12/01/19 08/23/21 08/22/21 History release ibuprofen 800 mg tablet See Rx Instructions .ROUTE 06/27/21 08/23/21 Unknown Rx .COMPLEX #90 tab hydrocodone 10 mg-acetaminophen 2 tab PO TID PRN 30 Days #180 tab 08/05/21 08/23/21 Unknown Rx 325 mg tablet hydrocodone 10 mg-acetaminophen 2 tab PO TID PRN 30 Days #180 tab 08/05/21 08/23/21 08/23/21 Rx 325 mg tablet Allergies Allergy/AdvReac Type Severity Reaction Status Date / Time No Known Allergies Allergy Verified 08/05/21 11:36 Current Medications Current Medications Generic Name Dose Route Start Last Admin Trade Name Freq PRN Reason Stop Dose Admin Hydrocodone Bitart/Acetaminophen 1 tab 08/24/21 10:34 08/25/21 04:11 Hydrocodone-Acetaminophen 10-325 Mg Tablet PO 1 tab Q8H PRN Administration break through pain Aspirin 81 mg 08/24/21 09:00 08/25/21 08:37 Aspirin 81 Mg Ec Tablet PO Not Given DAILY RAFY Hydromorphone HCl 1 mg 08/24/21 10:33 08/25/21 06:12 Hydromorphone 1 Mg/Ml Inj 1 Ml IVP 1 mg Q4H PRN Administration SEVERE PAIN Piperacillin Sod/Tazobactam 50 mls @ 12.5 mls/hr 08/24/21 05:00 08/25/21 08:36 Sod 3.375 gm/ Sodium Chloride IV 12.5 mls/hr Q8H RAFY Administration Protocol Lanolin 1 applic 08/23/21 23:35 08/24/21 14:16 Lanolin Oint 7 Gm TOPICAL 1 applic PRN PRN Administration DRYNESS Pantoprazole Sodium 40 mg 08/23/21 18:30 08/25/21 06:[address] 40 Mg Tablet PO 40 mg Q12H RAFY Administration Sucralfate 1 gm 08/23/21 21:00 08/25/21 06:03 Sucralfate 1 Gm Tablet PO 1 gm AC&BEDTIME RAFY Administration Trolamine Salicylate 1 applic 08/23/21 21:17 08/24/21 14:16 Trolamine Salicylate 10% 85 Gm Cream TOPICAL 1 applic TID PRN Administration PAIN PFSH Acute PFSH: Medical History Acute lumbar back pain Chronic low back pain Chronic pain of right knee Encounter for long-term opiate analgesic use Hypertension Localized osteoarthritis of right knee Lumbar spondylosis 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, lumbosacral region Stable burst fracture of unspecified lumbar vertebra, subsequent encounter for fracture with routine healing Wedge compression fracture of unspecified thoracic vertebra, sequela Surgical History H/O shoulder surgery Family History Other No pertinent family history Social History Smoking and tobacco status: never smoked Second hand smoke exposure: No Alcohol intake: never History of recent travel: No Female Reproductive History: Spontaneous abortions: No Vitals/I&O/Wt Last Vital Signs Temp 99.0 F 08/25/21 07:21 Pulse 87 08/25/21 07:21 Resp 17 08/25/21 07:21 BP 136/68 08/25/21 07:21 Pulse Ox 93 08/25/21 07:21 08/24/21 08/25/21 08/25/21 22:59 06:59 14:59 Intake Total 150 / 1730 50 / 50 Output Total 1200 / 1200 1100 / 2300 Balance -1050 / 530 -1100 / -570 50 / 50 Weight last 48 hrs Weight 171 lb Weight 145 lb Physical Exam Narrative: EXAM NARRATIVE: The patient is a elderly female supine in bed in no obvious distress. She is alert and oriented to person place and time and answers questions appropriately. She has clear shortening and external rotation of the left hip. She has exquisite pain with any efforts to move the left hip. Palpable left dorsalis pedis pulse. Flexes and extends left toes and ankle Urinary Catheter Management^: Mccullough: Cath Placed During This Visit: no Reason for Continuing Indwelling Catheter: Required Immobilization for Trauma or Surgery or Anesthesia Data Micro: Micro: Microbiology 08/24/21 16:23 Occult Blood (FIT) - Final Stool Routine Col lection 08/23/21 16:20 Urine Culture - Pr eliminary Urine,Clean Catch Gram Negative R ods Imaging^: Xray Ortho: My impression: Radiographs of the left hip are personally interpreted by me dated 08/23/2021. The patient has a comminuted left intertrochanteric fracture with varus alignment. A CT scan is reviewed confirming these are results A&P Assessment and plan (1) Intertrochanteric fracture of left hip: The patient has displaced fracture. She has a history of compression fractures and compromised bone quality. I certainly think the best means of fixation would be an intramedullary device. I discussed options with the patient.. I told the patient we could treat this nonoperatively but certainly they would be at risk for medical problems without surgery. Theywould have problems with pain that would require narcotics for pain control. They would require a long period of bedrest ship erector risk for pneumonia and skin breakdown. I discussed surgical intervention with the patient. I told them with open reduction internal fixation they should be able to be mobilized and resume ambulatory status. We can eliminate the problems associated with prolonged bed rest and would have better control of pain. Certainly there would be inherent risk with surgery. These would would include the risk of cardiac complications, stroke, infection, and even . I discussed risk of any orthopedic implant including nonunion, malunion, a component failure. I discussed the possible need for component removal. I discussed risk of deep venous thromboses and pulmonary emboli that are present with any treatment and the importance of DVT prophylaxis. The patient expressed good understanding of alternative treatments, seem to comprehend, and agrees to surgical intervention. Status: Acute Coding Level of Care Code Acute Director Of Child Welfare Services for [facility] Diagnoses Intertrochanteric fracture of left hip S72.142A
--- NOTE | 2021-08-25 10:41 | PM.PN ---
Subjective Subjective: Interval history: Patient was seen and examined this morning, currently complaining of pain in the left hip. Medications: Reviewed: Yes Vitals/I&O/Wt Last Vital Signs Temp 99.0 F 08/25/21 07:21 Pulse 87 08/25/21 07:21 Resp 18 08/25/21 09:58 BP 136/68 08/25/21 07:21 Pulse Ox 94 08/25/21 09:58 08/24/21 08/25/21 08/25/21 22:59 06:59 14:59 Intake Total 150 / 1730 50 / 50 Output Total 1200 / 1200 1100 / 2300 Balance -1050 / 530 -1100 / -570 50 / 50 Weight last 48 hrs Weight 77.564 kg Weight 65.771 kg Physical Exam Const: COMMON NORMALS: patient oriented x3 HENMT: COMMON NORMALS: normocephalic and atraumatic HEAD & SCALP: normocephalic and atraumatic Resp: COMMON NORMALS: clear to auscultation bilaterally AUSCULTATION: clear to auscultation bilaterally Cardio: COMMON NORMALS: regular rate, regular rhythm, S1 normal heart sound present, S2 normal heart sound present, No gallops present (Cardio), No murmurs present (Cardio), No rub (Cardio) and Peripheral pulses 2+ throughout RATE: regular rate RHYTHM: regular rhythm HEART SOUNDS: S1 normal heart sound present and S2 normal heart sound present PERIPHERAL PULSES: Peripheral pulses 2+ throughout GI: COMMON NORMALS: Normal to inspection, nondistended, normoactive bowel sounds present, Soft to palpation, non-tender, No hepatosplenomegaly present and no masses AUSCULTATION: Yes normoactive bowel sounds PALPATION: Yes Soft to palpation and Yes No hepatosplenomegaly present RECTAL EXAM: deferred Extremity: COMMON NORMALS: no clubbing, cyanosis or edema and no pedal edema OTHER: Left hip pain with minimal movement. Neuro: COMMON NORMALS: patient oriented x3 Urinary Catheter Management^: Mccullough: Cath Placed During This Visit: no Reason for Continuing Indwelling Catheter: Required Immobilization for Trauma or Surgery or Anesthesia Data : 08/25/21 05:36 08/25/21 05:36 Micro: Microbiology 08/24/21 16:23 Occult Blood (FIT) - Final Stool Routine Collection 08/23/21 16:20 Urine Culture - Preliminary Urine,Clean Catch Gram Negative Rods A&P Assessment and plan (1) Hyponatremia: -Hyponatremia, 130, likely secondary to dehydration, stop fluids, general diet Status: Acute (2) UTI (urinary tract infection): -History of recurrent UTIs, has been Cipro over the last 2 weeks -Failure of outpatient antibiotics, initially on Zosyn for possible resistant organism, will switch her to nitrofurantoin. Status: Acute (3) Left hip pain: -X-ray of the hip shows greater trochanteric left hip fracture -CT scan of the left hip shows Bones/joints: Acute intertrochanteric fracture of the left hip. Fracture fragments are in mild varus alignment. No hip dislocation. The acetabulum is intact. There are old healed fractures of the left pubic rami. Soft tissues: Mild soft tissue edema noted adjacent to the fracture. No focal hematoma demonstrated. -S/P Open reduction internal fixation left hip with intramedullary device Orthopedic service called for consult, n.p.o. midnight, surgical intervention tomorrow morning -We will change to Dilaudid for pain, [place] for breakthrough pain, -Full code -Protonix for GI prophylaxis -SCDs for DVT prophylaxis, anticoagulation currently relatively contraindicated due to anemia Status: Acute (4) Fall: -Sounds like a mechanical fall -But her UTI and hyponatremia could be playing a role Status: Acute (5) Acute on chronic anemia: -She has a history of chronic, hemoglobin as low as 6.8 -She had seen her outpatient physician, declined further work-up, declined GI evaluation, denies any transfusions, denies any EGD, denies any colonoscopy, denies any bloody or black stools, denies lightheadedness, no dizziness, no family or personal history of colon cancer or GI cancer, no history of bone marrow cancers -Iron studies reveal iron deficiency anemia -Possibly secondary slow GI bleed and or bone marrow deficiency -Hemoglobin 7.6, S/P 1 unit PRBC -Protonix, Carafate -On lovenox Status: Acute Attestations Medical Necessity Statement*: Patient needs to be in hospital for management of lt hip fracture Coding Level of Care Code Acute Gravity Manager for [facility] Diagnoses Hyponatremia E87.1 UTI (urinary tract infection) N39.0 Left hip pain M25.552 Fall W19.XXXA Acute on chronic anemia D64.9
--- NOTE | 2021-08-25 10:56 | PC.OT ---
OT EVALUATION ORDERS RECEIVED. HOLD TODAY DUE TO SCHEDULED SURGERY.
--- NOTE | 2021-08-25 13:00 | PC.NURSE ---
Patient to surgery at this time.
--- NOTE | 2021-08-25 13:05 | ANES.PREANE2 ---
Pre-Anesthetic Assessment Pre-Anesthetic Assessment: Height/Weight: Height 1.7 m Weight 77.564 kg Temp Pulse Resp BP Pulse Ox 98.8 F 84 16 159/77 93 08/25/21 11:37 08/25/21 11:37 08/25/21 11:37 08/25/21 11:37 08/25/21 11:37 Preop Diagnosis: hip fracture Proposed Procedure: Operation Date: 08/25/21 14:25 Proposed Procedures p Trochanteric Femoral Nail(Left) - Kale Hayden MD Familial anesthetic complications: none Was Beta Alessandra taken within 24 hours: N/A Was Clonidine taken within 24 hours: N/A Last intake: NPO > 8 hrs Social: Social History: No alcohol and No tobacco Exam: Pre-Anes Outpt Exam: alert, oriented x 3, clear to auscultation bilaterally and regular rate & rhythm Airway: Cervical ROM: WNL MP: 2 Dentition: Full CV/HEM: CV/HEM: Anemia (given 1 unit prbcs on floor, ordered 2 units for surgery) Anesthetic Plan: ASA status: 3 Anesthesia: General Risk of > 500 ml blood loss (7ml/kg in children): No Meds/Allergies Current Medications: Current Medications Generic Name Dose Route Start Last Admin Trade Name Freq PRN Reason Stop Dose Admin Hydrocodone Bitart /Acetaminophen 1 tab 08/24/21 10:34 08/25/21 12:31 Hydrocodone-Acet aminophen 10-325 M g Tablet PO 1 tab Q8H PRN Administration break through kristen n Aspirin 81 mg 08/24/21 09:00 08/25/21 08:37 Aspirin 81 Mg Ec Tablet PO Not Given DAILY RAFY Hydromorphone HCl 1 mg 08/24/21 10:33 08/25/21 09:58 Hydromorphone 1 Mg/Ml Inj 1 Ml IVP 1 mg Q4H PRN Administration SEVERE PAIN Piperacillin Sod/T azobactam 50 mls @ 12.5 mls /hr 08/24/21 05:00 08/25/21 08:36 Sod 3.375 gm/ So dium Chloride IV 12.5 mls/hr Q8H RAFY Administration Protocol Lanolin 1 applic 08/23/21 23:35 08/24/21 14:16 Lanolin Oint 7 G m TOPICAL 1 applic PRN PRN Administration DRYNESS Pantoprazole Sodiu m 40 mg 08/23/21 18:30 08/25/21 06:[address] 40 Mg Tablet PO 40 mg Q12H RAFY Administration Sucralfate 1 gm 08/23/21 21:00 08/25/21 12:07 Sucralfate 1 Gm Tablet PO Not Given AC&BEDTIME RAFY Trolamine Salicyla te 1 applic 08/23/21 21:17 08/24/21 14:16 Trolamine Salicy late 10% 85 Gm Cre am TOPICAL 1 applic TID PRN Administration PAIN PFSH Anesthesia PFSH: Medical History Acute lumbar back pain Chronic low back pain Chronic pain of right knee Encounter for long-term opiate analgesic use Hypertension Localized osteoarthritis of right knee Lumbar spondylosis 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, lumbosacral region Stable burst fracture of unspecified lumbar vertebra, subsequent encounter for fracture with routine healing Wedge compression fracture of unspecified thoracic vertebra, sequela Surgical History H/O shoulder surgery Family History Other No pertinent family history Social History Smoking and tobacco status: never smoked Second hand smoke exposure: No Alcohol intake: never History of recent travel: No Female Reproductive History: Spontaneous abortions: No Data Anesthesia CBC & Chem 7: 08/25/21 05:36 08/25/21 05:36 Other Labs: Laboratory Results - last 48 hr 08/23/21 08/23/21 08/23/21 15:18 15:18 15:18 WBC 14.8 H RBC 3.59 L Hgb 9.2 L Hct 30.0 L MCV 83.6 MCH 25.6 L MCHC 30.7 RDW 12.7 Plt Count 381 MPV 9.1 Neut % (Auto) 84.9 Lymph % (Auto) 6.8 [place] % (Auto) 6.3 Eos % (Auto) 1.1 Baso % (Auto) 0.3 Reticulocyte % (Auto) 2.3 H Neut # (Auto) 12.57 H Lymph # (Auto) 1.0 [place] # (Auto) 0.9 Eos # (Auto) 0.2 Baso # (Auto) 0.1 Nucleated RBC % (auto) 0 Nucleated RBCs # 0.0 Sodium 129 L Potassium 4.1 Chloride 97 L Carbon Dioxide 23 Anion Gap 13.1 BUN 19 Creatinine 0.7 GFR Calculation Not Reportable Glucose 142 H Estimat Average Glucose Hemoglobin A1c Calculated Osmolality 273 L Calcium 8.8 Phosphorus Magnesium Iron Ferritin Total Bilirubin 0.2 AST 21 ALT 15 Alkaline Phosphatase 68 Troponin T Baseline Troponin T 120 Minute Delta Troponin T Troponin T Hi Sens 6Hr Troponin T Hi Sens 6Hr Delta NT-Pro-B Natriuret Pep Total Protein 5.9 L Albumin 3.7 Globulin 2.2 Vitamin B12 Folate Procalcitonin TSH Urine Color Urine Appearance Urine pH Ur Specific [place] Urine Protein Urine Glucose (UA) Urine Ketones Urine Blood Urine Nitrate Urine Bilirubin Urine Urobilinogen Ur Leukocyte Esterase Urine RBC Urine WBC Ur Squamous Epith Cells Amorphous Sediment Urine Bacteria Blood Type Rho(D) Type Antibody Screen Crossmatch 08/23/21 08/23/21 08/23/21 15:18 15:18 16:20 WBC RBC Hgb Hct MCV MCH MCHC RDW Plt Count MPV Neut % (Auto) Lymph % (Auto) [place] % (Auto) Eos % (Auto) Baso % (Auto) Reticulocyte % (Auto) Neut # (Auto) Lymph # (Auto) [place] # (Auto) Eos # (Auto) Baso # (Auto) Nucleated RBC % (auto) Nucleated RBCs # Sodium Potassium Chloride Carbon Dioxide Anion Gap BUN Creatinine GFR Calculation Glucose Estimat Average Glucose Hemoglobin A1c Calculated Osmolality Calcium Phosphorus Magnesium Iron 21 L Ferritin 14 L Total Bilirubin AST ALT Alkaline Phosphatase Troponin T Baseline Troponin T 120 Minute Delta Troponin T Troponin T Hi Sens 6Hr Troponin T Hi Sens 6Hr Delta NT-Pro-B Natriuret Pep 262 Total Protein Albumin Globulin Vitamin B12 434 Folate 5.1 Procalcitonin TSH Urine Color Yellow Urine Appearance Cloudy Urine pH 6 Ur Specific [place] 1.015 Urine Protein Neg Urine Glucose (UA) Norm Urine Ketones Negative Urine Blood Neg Urine Nitrate Positive H Urine Bilirubin Neg Urine Urobilinogen Norm Ur Leukocyte Esterase Negative Urine RBC None Urine WBC 25-40 H Ur Squamous Epith Cells 0-4 H Amorphous Sediment Not Reportable Urine Bacteria 4+ H Blood Type Rho(D) Type Antibody Screen Crossmatch 08/23/21 08/23/21 08/24/21 20:17 22:45 02:40 WBC 10.2 H RBC 2.95 L Hgb 7.6 L Hct 24.4 L MCV 82.7 MCH 25.8 L MCHC 31.1 RDW 12.9 Plt Count 298 MPV 9.1 Neut % (Auto) 74.5 Lymph % (Auto) 15.4 [place] % (Auto) 8.7 Eos % (Auto) 0.9 Baso % (Auto) 0.2 Reticulocyte % (Auto) Neut # (Auto) 7.58 Lymph # (Auto) 1.6 [place] # (Auto) 0.9 Eos # (Auto) 0.1 Baso # (Auto) 0.0 Nucleated RBC % (auto) 0 Nucleated RBCs # 0.0 Sodium Potassium Chloride Carbon Dioxide Anion Gap BUN Creatinine GFR Calculation Glucose Estimat Average Glucose Hemoglobin A1c Calculated Osmolality Calcium Phosphorus Magnesium Iron Ferritin Total Bilirubin AST ALT Alkaline Phosphatase Troponin T Baseline 61 H Troponin T 120 Minute 49.23 H Delta Troponin T -11.77 L Troponin T Hi Sens 6Hr Troponin T Hi Sens 6Hr Delta NT-Pro-B Natriuret Pep Total Protein Albumin Globulin Vitamin B12 Folate Procalcitonin TSH Urine Color Urine Appearance Urine pH Ur Specific [place] Urine Protein Urine Glucose (UA) Urine Ketones Urine Blood Urine Nitrate Urine Bilirubin Urine Urobilinogen Ur Leukocyte Esterase Urine RBC Urine WBC Ur Squamous Epith Cells Amorphous Sediment Urine Bacteria Blood Type Rho(D) Type Antibody Screen Crossmatch 08/24/21 08/24/21 08/24/21 02:40 02:40 02:40 WBC RBC Hgb Hct MCV MCH MCHC RDW Plt Count MPV Neut % (Auto) Lymph % (Auto) [place] % (Auto) Eos % (Auto) Baso % (Auto) Reticulocyte % (Auto) Neut # (Auto) Lymph # (Auto) [place] # (Auto) Eos # (Auto) Baso # (Auto) Nucleated RBC % (auto) Nucleated RBCs # Sodium 130 L Potassium 4.3 Chloride 98 Carbon Dioxide 22 Anion Gap 14.3 BUN 12 Creatinine 0.6 GFR Calculation Not Reportable Glucose 110 Estimat Average Glucose 105 Hemoglobin A1c 5.3 Calculated Osmolality 270 L Calcium 8.1 L Phosphorus 3.4 Magnesium 1.8 Iron Ferritin Total Bilirubin 0.4 AST 20 ALT 12 Alkaline Phosphatase 55 Troponin T Baseline Troponin T 120 Minute Delta Troponin T Troponin T Hi Sens 6Hr 38.40 H Troponin T Hi Sens 6Hr Delta -22.60 L NT-Pro-B Natriuret Pep Total Protein 4.6 L D Albumin 3.0 L Globulin 1.6 Vitamin B12 Folate Procalcitonin 0.11 TSH 0.89 Urine Color Urine Appearance Urine pH Ur Specific [place] Urine Protein Urine Glucose (UA) Urine Ketones Urine Blood Urine Nitrate Urine Bilirubin Urine Urobilinogen Ur Leukocyte Esterase Urine RBC Urine WBC Ur Squamous Epith Cells Amorphous Sediment Urine Bacteria Blood Type Rho(D) Type Antibody Screen Crossmatch 08/24/21 08/25/21 08/25/21 09:40 05:36 05:36 WBC 9.7 RBC 3.32 L Hgb 8.7 L Hct 27.7 L MCV 83.4 MCH 26.2 L MCHC 31.4 RDW 13.2 Plt Count 245 MPV 9.5 Neut % (Auto) 71.0 Lymph % (Auto) 13.4 [place] % (Auto) 10.5 Eos % (Auto) 4.1 Baso % (Auto) 0.6 Reticulocyte % (Auto) Neut # (Auto) 6.86 Lymph # (Auto) 1.3 [place] # (Auto) 1.0 H Eos # (Auto) 0.4 Baso # (Auto) 0.1 Nucleated RBC % (auto) 0 Nucleated RBCs # 0.0 Sodium 129 L Potassium 3.9 Chloride 98 Carbon Dioxide 23 Anion Gap 11.9 BUN 12 Creatinine 0.5 GFR Calculation Not Reportable Glucose 106 Estimat Average Glucose Hemoglobin A1c Calculated Osmolality 268 L Calcium 8.0 L Phosphorus 3.0 Magnesium 1.9 Iron Ferritin Total Bilirubin 0.3 AST 16 ALT 10 Alkaline Phosphatase 53 Troponin T Baseline Troponin T 120 Minute Delta Troponin T Troponin T Hi Sens 6Hr Troponin T Hi Sens 6Hr Delta NT-Pro-B Natriuret Pep Total Protein 5.0 L Albumin 2.9 L Globulin 2.1 Vitamin B12 Folate Procalcitonin TSH Urine Color Urine Appearance Urine pH Ur Specific [place] Urine Protein Urine Glucose (UA) Urine Ketones Urine Blood Urine Nitrate Urine Bilirubin Urine Urobilinogen Ur Leukocyte Esterase Urine RBC Urine WBC Ur Squamous Epith Cells Amorphous Sediment Urine Bacteria Blood Type O Positive Rho(D) Type Positive Antibody Screen Negative Crossmatch See Detail Micro: Microbiology 08/23/21 16:20 Urine Culture - Final Urine,Clean Catch Escherichia coli 08/24/21 16:23 Occult Blood (FIT) - Final Stool Routine Collection Cardiac Studies: No Data to Display
[2021-08-25] MEDS: sodium chloride 0.9% 1,000 ML 30 ML IV (13:45)
[2021-08-25 15:13] LABS: Quest SARS-CoV-2 RNA NOT DETECTED (NOT DETECTED)
--- NOTE | 2021-08-25 15:52 | XR_ITS ---
WS: [id number] Exam: XR hip LT 2-3V wo/w pel* [id number] Date/Time of Exam: 08/25/2021 3:55 PM Reason For Exam: FX LT. HIP Intraoperative C-arm images of the left hip are submitted for evaluation. There is internal orthopedic fixation involving an intertrochanteric fracture of the left hip. An int ramedullary hieu and impaction screw stabilize a fracture in satisfactory position for healing. There is avulsion and medial separation of the lesser trochanter. XR/XR hip LT 2-3V wo/w pel* [id number] IMPRESSION: 1. Intertrochanteric fracture of the left hip stabilized with internal orthoped ic fixation in satisfactory alignment for healing.
--- NOTE | 2021-08-25 15:55 | PM.OP ---
Operative Report Date of procedure: August 25, 2021 Pre-op Diagnosis: Left intratrochanteric hip fracture Post-op diagnosis: same Post-op Findings: Same Procedure Done: Open reduction internal fixation left hip with intramedullary device Pathology: none sent Surgeon: Kale Hayden Anesthesia: General Estimated blood loss (mL): 200 Complications: None Findings: The patient had a unstable comminuted left intertrochanteric hip fracture with varus angulation of the head and neck Condition: stable Disposition: PACU Procedure: The patient was taken to the operating room. They were given 1 g of Ancef. They were positioned on the fracture table with the right lower extremity in gentle traction. A timeout was performed. A 2 cm long incision was made proximal to the greater trochanter scalpel blade. Dissection was carried down to tip the greater trochanter. A guidepin was passed manually from the tip of the trochanter down the shaft. The proximal reamer was utilized to open up the proximal canal. An 11 mm by 360 Korbitec gamma nail was passed down the canal without difficulty. Under visualization of fluoroscopy a guidepin was driven up into the head and neck at 125? angle. It was measured at 100 mm in length and a lag screw similar length was then placed and locked into place with the proximal locking screw. Compression was applied across the screw before he ultimately was locked in place. Intraoperative imaging was obtained verifying satisfactory position of the hardware and reduction of the fracture. Deep tissues were closed with 0 Vicryl as were subcutaneous tissues. The skin was closed with skin [place]. Sterile dressings were applied. The patient was extubated and taken to recovery room in stable condition.
[2021-08-25] MEDS: ondansetron 2 mg/ML SDV 2 mL 4 MG IVP (16:13)
[2021-08-25] MEDS: fentaNYL 50 mcg/mL INJ 2mL IVP (16:16)
[2021-08-25] MEDS: HYDROmorphone 1 mg/mL INJ 1 mL 0.5 MG IVP (16:36)
--- NOTE | 2021-08-25 16:39 | SUR.PHASEI ---
PT C/O OF UNCHANGED PAIN DR BELTRAN AT BEDSIDE ORDERS RECIEVED TO GIVE DILAUDID FOR PAIN. PT AWAKE ALERT TALKATIVE STATES NAUSEA IS BETTER. COTA CATHETER PATENT OF YELLOW URINE TO TUBING AND BAG.
[2021-08-25] MEDS: oxyCODONE 5 mg IR Tab/Cap PO ×2 (17:55→23:18)
[2021-08-25] MEDS: polyethylene glycol 3350 Pkt 17 gm PO (17:55)
[2021-08-25] MEDS: sennosides-docusate Tablet 2 TAB PO (17:55)
[2021-08-25] MEDS: sodium chloride 0.9% 1,000 ML 75 ML IV (17:59)
--- NOTE | 2021-08-25 18:00 | ANE.PACU2 ---
Inpatient post-anesthesia follow up: Airway intact: Yes Vital signs: Temperature 98.5 F Pulse Rate [Monito r] 112 Pulse Rate 92 Respiratory Rate 16 Blood Pressure [Le ft Arm] 174/77 Blood Pressure 152/75 Pulse Oximetry 95 Oxygen Delivery Me thod Nasal Cannula Oxygen Flow Rate 2 Fraction of Inspir ed Oxygen Hydration adequate: Yes Nausea and vomiting: No Pain level: 2 Mental status: Baseline
--- NOTE | 2021-08-25 19:17 | PC.NURSE ---
Report to Darwin HARVEY at this time.
[2021-08-25] MEDS: HYDROcodone-acetaminophen 10-325 mg Tablet 2 TAB PO (20:39)
[2021-08-25] MEDS: chlorhexidine gluconate 0.12% Btl 473 mL 30 ML MUCOUS MEM (20:42)
--- NOTE | 2021-08-25 21:33 | PC.NURSE ---
BP At 1999 BP was recorded by Mary reagan to be 76/55. BP was rechecked at that time and was 153/68
[2021-08-26] VITALS (19 sets, daily range): BP systolic 106–159; BP diastolic 62–80; PULSE 78–105; RESP 16–20; TEMP 36.8–37.5; O2SAT 2–98
[2021-08-26] MEDS: morphine 4 mg/mL SDV 1 mL 2 MG IVP ×2 (01:00→04:36)
[2021-08-26 03:08] LABS: Basophils % 0.3 %; Eosinophils # 0.1 10^3/uL (0.0-0.8); Hematocrit 24.2 % (37.0-47.0); Hemoglobin 7.4 g/dL (11.5-15.3); Lymphocytes # 1.3 10^3/uL (0.8-4.8); Lymphocytes % 11.3 %; Mean Corpuscular HGB Conc 30.6 g/dL (30.0-36.0); Mean Corpuscular Volume 84.9 fl (81-99); Mean Platelet Volume 9.4 fL (7.4-10.4); Monocytes % 8.7 %; Neutrophils # 9.29 10^3/uL (1.8-7.7); Neutrophils % 78.2 %; Nucleated Red Blood Cells % 0 %; Platelet Count 211 10^3/cmm (130-400); Red Blood Count 2.85 10^6/uL (4.1-5.3); Red Cell Distribution Width 13.4 % (12.1-15.1); White Blood Count 11.9 10^3/uL (4.0-10.0)
[2021-08-26 03:29] LABS: Alanine Aminotransferase 10 U/L (0-33); Albumin Level 2.5 g/dL (3.5-5.2); Alkaline Phosphatase 45 IU/L (35-105); Anion Gap 11.9 (5-19); Aspartate Amino Transferase 15 U/L (0-32); Blood Urea Nitrogen 13 mg/dL (8-23); Calcium 7.4 mg/dL (8.5-10.5); Carbon Dioxide 21 mmol/L (22-29); Chloride 101 mmol/L (98-107); Glucose 115 mg/dL (65-115); Magnesium 1.9 mg/dL (1.7-2.3); Osmolality Calculated 271 mOsm/kg (285-295); Phosphorus 3.7 mg/dL (2.5-4.5); Potassium 3.9 mmol/L (3.5-5.1); Sodium 130 mmol/L (136-145); Total Bilirubin 0.4 mg/dL (0.15-1.2); Total Protein 4.5 g/dL (6.6-8.7)
[2021-08-26] MEDS: HYDROcodone-acetaminophen 10-325 mg Tablet 2 TAB PO ×3 (05:56→19:28)
[2021-08-26] MEDS: sodium chloride 0.9% 1,000 ML 75 ML IV (07:08)
--- NOTE | 2021-08-26 08:06 | P.PN_ITS ---
Subjective Subjective: Interval history: Patient is awake and alert. Answers questions appropriately. Oriented to person place and time. Desires regular diet. Vitals/I&O/Wt Last Vital Signs Temp 98.8 F 08/26/21 07:48 Pulse 86 08/26/21 07:48 Resp 17 08/26/21 07:48 BP 109/62 08/26/21 07:48 Pulse Ox 92 08/26/21 07:48 08/25/21 08/26/21 08/26/21 22:59 06:59 14:59 Intake Total 100 / 150 560 / 710 986.25 / 986.25 Output Total 50 / 50 525 / 575 Balance 50 / 100 35 / 135 986.25 / 986.25 Physical Exam Narrative: EXAM NARRATIVE: Expected swelling left thigh. Dressings clean and dry. Urinary Catheter Management^: Mccullough: Cath Placed During This Visit: yes, but has since been removed by the nurse Reason for Continuing Indwelling Catheter: Decision to DC Catheter Date Urinary Catheter Removed: 08/26/21 Time Urinary Catheter Discontinued: 06:08 Data : 08/26/21 02:41 08/26/21 02:41 Micro: Microbiology 08/23/21 16:20 Urine Culture - Final Urine,Clean Catch Escherichia coli A&P Assessment and plan (1) Postoperative state: Status: Acute (2) Intertrochanteric fracture of left hip: Status: Acute Attestations Medical Necessity Statement*: Needs continued hospitalization to improve mobilization.. Anticipate correction. Coding Level of Care Code Acute Projection Printer for Kris Mittal Diagnoses Postoperative state Z98.890 Intertrochanteric fracture of left hip S72.142A
[2021-08-26] MEDS: polyethylene glycol 3350 Pkt 17 gm PO ×2 (08:54→17:46)
[2021-08-26] MEDS: sennosides-docusate Tablet 2 TAB PO ×2 (08:54→17:46)
[2021-08-26] MEDS: oxyCODONE 5 mg IR Tab/Cap PO ×3 (08:54→22:51)
[2021-08-26] MEDS: aspirin 81 mg EC Tablet PO (08:54)
[2021-08-26] MEDS: nitrofurantoin SR (BID) 100 mg Capsule PO ×2 (10:13→17:46)
[2021-08-26] MEDS: enoxaparin 40 mg/0.4 mL Syringe SUBCUT (10:13)
--- NOTE | 2021-08-26 11:04 | P.PN_ITS ---
Subjective Subjective: Interval history: Patient was seen and examined this morning, complaining of lt hip pain, Physical therapy in room, have encouraged PT participation. Hb has dropped to 7.2 today, likley post surgery blood loss, will transfuse 1 u prbc today. Medications: Reviewed: Yes Vitals/I&O/Wt Last Vital Signs Temp 98.8 F 08/26/21 07:48 Pulse 86 08/26/21 07:48 Resp 18 08/26/21 08:54 BP 109/62 08/26/21 07:48 Pulse Ox 98 08/26/21 08:54 08/25/21 08/26/21 08/26/21 22:59 06:59 14:59 Intake Total 100 / 150 560 / 710 1226.25 / 1226.25 Output Total 50 / 50 525 / 575 Balance 50 / 100 35 / 135 1226.25 / 1226.25 Physical Exam Const: COMMON NORMALS: patient oriented x3 HENMT: COMMON NORMALS: normocephalic and atraumatic HEAD & SCALP: normocephalic and atraumatic Resp: COMMON NORMALS: clear to auscultation bilaterally AUSCULTATION: clear to auscultation bilaterally Cardio: COMMON NORMALS: regular rate, regular rhythm, S1 normal heart sound present, S2 normal heart sound present, No gallops present (Cardio), No murmurs present (Cardio), No rub (Cardio) and Peripheral pulses 2+ throughout RATE: regular rate RHYTHM: regular rhythm HEART SOUNDS: S1 normal heart sound present and S2 normal heart sound present PERIPHERAL PULSES: Peripheral pulses 2+ throughout GI: COMMON NORMALS: Normal to inspection, nondistended, normoactive bowel sounds present, Soft to palpation, non-tender, No hepatosplenomegaly present and no masses AUSCULTATION: Yes normoactive bowel sounds PALPATION: Yes Soft to palpation and Yes No hepatosplenomegaly present RECTAL EXAM: deferred Extremity: COMMON NORMALS: no clubbing, cyanosis or edema and no pedal edema OTHER: Left hip pain with minimal movement. Neuro: COMMON NORMALS: patient oriented x3 Urinary Catheter Management^: Mccullough: Cath Placed During This Visit: yes, but has since been removed by the nurse Reason for Continuing Indwelling Catheter: Decision to DC Catheter Date Urinary Catheter Removed: 08/26/21 Time Urinary Catheter Discontinued: 06:08 Data : 08/26/21 02:41 08/26/21 02:41 Micro: Microbiology 08/23/21 16:20 Urine Culture - Final Urine,Clean Catch Escherichia coli A&P Assessment and plan (1) Hyponatremia: -Hyponatremia, 130, likely secondary to dehydration, stop fluids, general diet Status: Acute (2) UTI (urinary tract infection): -History of recurrent UTIs, has been Cipro over the last 2 weeks -Failure of outpatient antibiotics, initially on Zosyn for possible resistant organism, will switch her to nitrofurantoin. Status: Acute (3) Left hip pain: -X-ray of the hip shows greater trochanteric left hip fracture -CT scan of the left hip shows Bones/joints: Acute intertrochanteric fracture of the left hip. Fracture fragments are in mild varus alignment. No hip dislocation. The acetabulum is intact. There are old healed fractures of the left pubic rami. Soft tissues: Mild soft tissue edema noted adjacent to the fracture. No focal hematoma demonstrated. -S/P Open reduction internal fixation left hip with intramedullary device Orthopedic service called for consult, n.p.o. midnight, surgical intervention tomorrow morning -We will change to Dilaudid for pain, Bagley for breakthrough pain, -Full code -Protonix for GI prophylaxis -SCDs for DVT prophylaxis, anticoagulation currently relatively contraindicated due to anemia Status: Acute (4) Fall: -Sounds like a mechanical fall -But her UTI and hyponatremia could be playing a role Status: Acute (5) Acute on chronic anemia: -She has a history of chronic, hemoglobin as low as 6.8 -She had seen her outpatient physician, declined further work-up, declined GI evaluation, denies any transfusions, denies any EGD, denies any colonoscopy, denies any bloody or black stools, denies lightheadedness, no dizziness, no family or personal history of colon cancer or GI cancer, no history of bone marrow cancers -Iron studies reveal iron deficiency anemia -Possibly secondary slow GI bleed and or bone marrow deficiency -Hemoglobin 7.4, S/P 2 unit PRBC -Protonix, Carafate -On lovenox Status: Acute Attestations Medical Necessity Statement*: Patient needs to be in hospital for the anemia and need for transfusion. Coding Level of Care Code Acute Computer Systems Information Director for Chg Fwd Diagnoses Hyponatremia E87.1 UTI (urinary tract infection) N39.0 Left hip pain M25.552 Fall W19.XXXA Acute on chronic anemia D64.9
[2021-08-26] MEDS: sodium chloride 0.9% (100 ml) 100 ML 15 ML (12:34)
--- NOTE | 2021-08-26 12:40 | PC.SOCIAL ---
Pg 2 IMM. Explained to pt Pg 2 IMM. No questions voiced. Provided pt a copy. Initialed, dated, & time a copy & placed in chart.
[2021-08-26 16:46] LABS: SARS Covid-2 Antigen Negative (Negative)
--- NOTE | 2021-08-26 19:06 | PC.NURSE ---
Report to Thao SAMPSON at this time.
[2021-08-27] VITALS (7 sets, daily range): BP systolic 131–147; BP diastolic 67–85; PULSE 86–101; RESP 16–20; TEMP 36.6–37.2; O2SAT 90–95
[2021-08-27] MEDS: bisacodyl 5 mg Tablet 10 MG PO (01:09)
[2021-08-27 02:47] LABS: Basophils % 0.4 %; Eosinophils # 0.7 10^3/uL (0.0-0.8); Eosinophils % 6.8 %; Hemoglobin 8.6 g/dL (11.5-15.3); Lymphocytes # 1.4 10^3/uL (0.8-4.8); Lymphocytes % 13.9 %; Mean Corpuscular HGB Conc 31.9 g/dL (30.0-36.0); Mean Corpuscular Hemoglobin 27.4 pg (28.0-34.0); Mean Platelet Volume 9.4 fL (7.4-10.4); Monocytes # 1.1 10^3/uL (0.2-0.9); Monocytes % 10.8 %; Neutrophils # 6.72 10^3/uL (1.8-7.7); Neutrophils % 67.5 %; Nucleated Red Blood Cells % 0 %; Platelet Count 213 10^3/cmm (130-400); Red Blood Count 3.14 10^6/uL (4.1-5.3); Red Cell Distribution Width 13.6 % (12.1-15.1)
[2021-08-27] MEDS: HYDROcodone-acetaminophen 10-325 mg Tablet 2 TAB PO ×2 (02:56→10:58)
[2021-08-27 03:06] LABS: Alanine Aminotransferase 13 U/L (0-33); Albumin Level 2.4 g/dL (3.5-5.2); Alkaline Phosphatase 67 IU/L (35-105); Anion Gap 10.7 (5-19); Aspartate Amino Transferase 19 U/L (0-32); Blood Urea Nitrogen 15 mg/dL (8-23); Calcium 7.4 mg/dL (8.5-10.5); Carbon Dioxide 22 mmol/L (22-29); Chloride 102 mmol/L (98-107); Globulin 2.1 g/dL (1.3-4.6); Glucose 124 mg/dL (65-115); Osmolality Calculated 274 mOsm/kg (285-295); Potassium 3.7 mmol/L (3.5-5.1); Sodium 131 mmol/L (136-145); Total Bilirubin 0.4 mg/dL (0.15-1.2); Total Protein 4.5 g/dL (6.6-8.7)
[2021-08-27] MEDS: oxyCODONE 5 mg IR Tab/Cap PO (07:16)
[2021-08-27] MEDS: nitrofurantoin SR (BID) 100 mg Capsule PO (07:49)
[2021-08-27] MEDS: sennosides-docusate Tablet 2 TAB PO (07:49)
[2021-08-27] MEDS: polyethylene glycol 3350 Pkt 17 gm PO (07:50)
[2021-08-27] MEDS: chlorhexidine gluconate 0.12% Btl 473 mL 30 ML MUCOUS MEM ×2 (07:50→12:26)
[2021-08-27] MEDS: aspirin 81 mg EC Tablet PO (07:50)
--- NOTE | 2021-08-27 08:51 | PC.NURSE ---
PT BOTH PT AND OT AT SIDE - PT MODERATE ASSIST TO CHAIR - MARCI FAIRLY - WILL CONTINUE TO ENCOURAGE AMBULATION AND SELF CARE
[2021-08-27] MEDS: enoxaparin 40 mg/0.4 mL Syringe SUBCUT (09:14)
--- NOTE | 2021-08-27 09:14 | PC.NURSE ---
Patient verified by name, and identification bracelet and IV number. Scanner is not working appropriately. Lovenox 40 mg subcutaneous given RUQ
--- NOTE | 2021-08-27 10:41 | PM.DCS ---
Discharge Providers Date of Admission: 08/23/21 17:55 Date of Discharge: August 27, 2021 Attending Provider at Admission: Juan Francisco Callahan MD Attending Provider at Discharge: Hayden Schilling MD Primary Care Provider: Yanet White NP Diagnoses at Discharge Discharge Diagnosis (1) Hyponatremia: Status: Acute (2) UTI (urinary tract infection): Status: Acute (3) Left hip pain: Status: Acute (4) Fall: Status: Acute (5) Acute on chronic anemia: Status: Acute Reason for Visit Reason for Visit: LEFT HIP PAIN S/P FALL Hospital Course Hospital Course HPI done by 80 year old female with a past medical history of chronic anemia, chronic low back pain, chronic right knee pain, restless leg, hypertension, who presents to [facility] for follow-up. Patient tells me that today she was preparing a meal for herself, when her frozen dinner fell to the floor, she got in her wheeled walker, sat in a wheel walker and reached down to the floor to pick it up when she fell forward,, she hit her left hip, and her head towards the floor, denies passing out, now she complains of severe left hip pain, in the emergency room she was found to have hyponatremia, UTI, and a left trochanteric hip fracture, she is going down for CT of the hip, Dr. Hayden has been consulted, hospitalist team was called for medical management. Currently she is alert and oriented x3, follows all commands, complains of left hip pain, no headache, blurry vision, no chest pain, no palpitations, denies cardiovascular history, denies a history of lung disease, denies history of strokes, no history of diabetes. Hospital course: She was admitted for the management of greater trochanteric left hip fracture: S/p: Open reduction internal fixation left hip with intramedullary device. She was also managed for hypokalemia hyponatremia: Due to poor oral intake: Responded well to IV hydration. UTI: Urine culture grew: E. coli: Sensitive to Macrobid: She received Zosyn during the hospital stay, is being discharged on Macrobid for 7 days. She was also managed for chronic anemia: FOBT was positive: She received 2 units PRBC: H&H was stable at the time of discharge: anemia panel consistent with iron deficiency anemia.Currently she do not want any further work-up. She told us that her anemia in the past has responded to healthy diet, and she wants to continue with the same. Patient responded well to the above medical management and is being discharged to residential facility.She will continue to follow Dr. Hayden as outpatient. Physical Exam Const: COMMON NORMALS: patient oriented x3 HENMT: COMMON NORMALS: normocephalic and atraumatic HEAD & SCALP: normocephalic and atraumatic Resp: COMMON NORMALS: clear to auscultation bilaterally AUSCULTATION: clear to auscultation bilaterally Cardio: COMMON NORMALS: regular rate, regular rhythm, S1 normal heart sound present, S2 normal heart sound present, No gallops present (Cardio), No murmurs present (Cardio), No rub (Cardio) and Peripheral pulses 2+ throughout RATE: regular rate RHYTHM: regular rhythm HEART SOUNDS: S1 normal heart sound present and S2 normal heart sound present PERIPHERAL PULSES: Peripheral pulses 2+ throughout GI: COMMON NORMALS: Normal to inspection, nondistended, normoactive bowel sounds present, Soft to palpation, non-tender, No hepatosplenomegaly present and no masses AUSCULTATION: Yes normoactive bowel sounds PALPATION: Yes Soft to palpation and Yes No hepatosplenomegaly present RECTAL EXAM: deferred Extremity: COMMON NORMALS: no clubbing, cyanosis or edema and no pedal edema OTHER: Left hip pain movement. Neuro: COMMON NORMALS: patient oriented x3 Urinary Catheter Management^: Mccullough: Cath Placed During This Visit: yes, but has since been removed by the nurse Reason for Continuing Indwelling Catheter: Decision to DC Catheter Date Urinary Catheter Removed: 08/26/21 Time Urinary Catheter Discontinued: 06:08 Discharge Data Data Completed and Pending: Completed Studies During Hospitalization Category Date Time Status CT head wo con* 7 0450 Urgent Cat Scan 08/23/21 18:[address] hip LT wo con* [id number] Stat Cat Scan 08/23/21 17:35 Completed XR chest 1V shaggy ble [id number] Stat Exams 08/23/21 14:49 Completed XR hip LT 2-3V wo /w pel* [id number] Rout ine Exams 08/25/21 15:52 Completed XR hip LT 2-3V wo /w pel* [id number] Stat Exams 08/23/21 14:49 Completed CV. echo complete * [id number] Routine Ultrasound 08/24/21 11:54 Completed Pending at discharge Category Date Time Status Complete Blood Co unt w/Auto AM LABS Lab 08/28/21 04:00 Ordered Leukocyte Reduced RBC Stat Lab 08/24/21 09:40 Results Type and Screen S tat Lab 08/24/21 09:40 Results Labs from last 24 hours 08/27/21 08/27/21 08/26/21 02:17 02:17 16:25 WBC 10.0 RBC 3.14 L Hgb 8.6 L Hct 27.0 L MCV 86.0 MCH 27.4 L MCHC 31.9 RDW 13.6 Plt Count 213 MPV 9.4 Neut % (Auto) 67.5 Lymph % (Auto) 13.9 [place] % (Auto) 10.8 Eos % (Auto) 6.8 Baso % (Auto) 0.4 Neut # (Auto) 6.72 Lymph # (Auto) 1.4 [place] # (Auto) 1.1 H Eos # (Auto) 0.7 Baso # (Auto) 0.0 Nucleated RBC % (a uto) 0 Nucleated RBCs # 0.0 Sodium 131 L Potassium 3.7 Chloride 102 Carbon Dioxide 22 Anion Gap 10.7 BUN 15 Creatinine 0.5 GFR Calculation Not Reportable Glucose 124 H Calculated Osmolal ity 274 L Calcium 7.4 L Total Bilirubin 0.4 AST 19 ALT 13 Alkaline Phosphata se 67 Total Protein 4.5 L Albumin 2.4 L Globulin 2.1 SARS-CoV-2 Ag (Rap id) Negative Blood Type Rho(D) Type Antibody Screen Crossmatch 08/24/21 09:40 WBC RBC Hgb Hct MCV MCH MCHC RDW Plt Count MPV Neut % (Auto) Lymph % (Auto) [place] % (Auto) Eos % (Auto) Baso % (Auto) Neut # (Auto) Lymph # (Auto) Wells # (Auto) Eos # (Auto) Baso # (Auto) Nucleated RBC % (a uto) Nucleated RBCs # Sodium Potassium Chloride Carbon Dioxide Anion Gap BUN Creatinine GFR Calculation Glucose Calculated Osmolal ity Calcium Total Bilirubin AST ALT Alkaline Phosphata se Total Protein Albumin Globulin SARS-CoV-2 Ag (Rap id) Blood Type O Positive Rho(D) Type Positive Antibody Screen Negative Crossmatch See Detail Vitals: Last Vital Signs Temp 97.9 F 08/27/21 08:00 Pulse 95 08/27/21 08:00 Resp 19 H 08/27/21 08:00 BP 147/80 08/27/21 08:00 Pulse Ox 95 08/27/21 08:00 Discharge Plan Discharge Patient Disposition: Home Condition: Stable Prescriptions: New nitrofurantoin monohyd/m-cryst 100 mg Capsule 100 mg PO BID 7 Days Qty: 14 RF: 0 Continued aspirin [Adult Low Dose Aspirin] 81 mg tablet,delayed release (DR/EC) 81 mg PO DAILY RF: 0 hydrocodone-acetaminophen 10-325 mg tablet 2 tab PO TID PRN (Reason: pain) 30 Days Qty: 180 RF: 0 Discontinued hydrocodone-acetaminophen 10-325 mg tablet 2 tab PO TID PRN (Reason: pain) 30 Days Qty: 180 RF: 0 ibuprofen 800 mg tablet See Rx Instructions .ROUTE .COMPLEX Qty: 90 RF: 0 Discharge Orders: Discharge Order (Routine); Ordered 08/27/21 Ordered By: Hayden Schilling Referrals: Kale Hayden MD [Physician] - 09/16/21 10:45 am Discharge Diet: Regular Discharge Activity: Increase activity as tolerated Patient Instructions: Opioid Safety Discharge Attestations Time Spent in Discharge Care*: less than 30 min Specific Discharge Activities: educating patient, educating and/or supporting family/caregiver, discussing with pcp/other providers, discussing with watch case polisher/social workers/dc planners, documenting/other paperwork and evaluating patient/reviewing data Status at Discharge: Cognitive status at discharge: cognitively intact, Behavioral status at discharge: cooperative, Functional status at discharge: other assisted ambulation Overall status at discharge: patient is progressing back to baseline Quality Metrics Clinical Quality Measures During this hospital stay, did patient experience: None Coding Level of Care Code Acute Chg FW DC note Diagnoses Hyponatremia E87.1 UTI (urinary tract infection) N39.0 Left hip pain M25.552 Fall W19.XXXA Acute on chronic anemia D64.9
--- NOTE | 2021-08-27 10:55 | PC.NURSE ---
This RN confirms patient care and documentation is correct.
[2021-08-27 12:29] LABS: SARS Covid-2 Antigen Negative (Negative)
--- NOTE | 2021-08-27 14:16 | PC.NURSE ---
DISCHARGE DISCHARGED VIA W/C WITH MSU STUDENTS AT SIDE - TAKE TO [facility]
--- NOTE | 2021-08-28 10:48 | PC.SOCIAL ---
discharge follow up call made, spoke with patient. patient reports she is having alot of pain, the pain medication isn't helping to control pain. Patient reports she has seen the pain clinic for years and her pain was under control prior to this surgery. [employer] Worker called and spoke with patients nurse, Che. She has a call into the pain clinic to make sure pain medications are being given per pain clinic orders to better control patients pain. Che reports pt is doing well, the facility is aware of follow up appointment with Dr. Hayden and they will transport patient.
== END 2021-08-27 14:21 | disposition skilled nursing facility (03) | DRG 481 ==
LOC: ER 16:26 → MEDSURG 18:44
PROVIDERS: Family Medicine; Orthopaedic Surgery; Admitting Provider Internal Medicine; Emergency Provider Family Medicine; PCP Nurse Practitioner Family; Visit Provider Internal Medicine
PROC: 0QS706Z Reposition Left Upper Femur with Intramedullary Internal Fixation Device, Open Approach (ICD-10-PCS; CPT 27245; principal; 2021-08-25 14:15)
DX: S72.142A Displaced intertrochanteric fracture of left femur, initial encounter for closed fracture (principal); E87.1 Hypo-osmolality and hyponatremia; N39.0 Urinary tract infection, site not specified; D62 Acute posthemorrhagic anemia; W18.30XA Fall on same level, unspecified, initial encounter; D64.9 Anemia, unspecified; M47.816 Spondylosis without myelopathy or radiculopathy, lumbar region; G89.29 Other chronic pain; G25.81 Restless legs syndrome; I10 Essential (primary) hypertension; M51.37 Other intervertebral disc degeneration, lumbosacral region; Z79.82 Long term (current) use of aspirin; Z79.891 Long term (current) use of opiate analgesic
CPT/HCPCS: 36415; 36430; 51702; 70450; 71045; 73502; 73700; 76000; 80053; 80500; 81001; 82274; 82607; 82728; 82746; 83036; 83540; 83735; 83880; 84100; 84145; 84443; 84484; 85025; 85045; 86850; 86900; 86920; 87077; 87086; 87186; 87426; 87635; 93005; 93306; 94664; 96365; 96372; 96375; 97110; 97161; 97167; 97530; 97535; 99285; C1713; C1776; J1170; J1650; J2270; J2405; J2543; J2704; J2710; J3010; J3490; J7030; J7040; P9016

== ENCOUNTER 2021-08-30 23:58 | Outpatient (CLI) | payer MEDICARE, OTHER, SELFPAY ==
[2021-08-31 00:22] LABS: Add Urine Microscopic? NO; Charge for UA Resulting for Rev
[2021-08-31 00:48] LABS: Bilirubin Urine Neg (Negative); Blood Urine Neg (Negative); Glucose Urine UA Norm (Normal); Ketones Urine Negative (Negative); Leukocyte Esterase Urine Negative (Negative); Nitrate Urine Negative (Negative); Protein Urine Neg (Negative); Specific Gravity, Urine 1.005 (1.005-1.030); Sulfosalicylic Acid Urine Negative (Negative); Urine Appearance Clear (CLEAR); Urine Color Yellow (Yellow); Urobilinogen Urine 1 mg/dL (Negative); pH Urine 8 (5-7)
== END 2021-08-30 23:59 | disposition home or self-care (01) ==
LOC: LAB 08-31 00:02
PROVIDERS: PCP Nurse Practitioner Family; Visit Provider Internal Medicine
DX: N39.0 Urinary tract infection, site not specified (principal)
CPT/HCPCS: 81003

== ENCOUNTER → 2021-10-21 10:15 | Outpatient (BNVA) | payer OTHER, SELFPAY | PROVIDERS: PCP Family Medicine; Visit Provider Orthopaedic Surgery | DX: S72.142A Displaced intertrochanteric fracture of left femur, initial encounter for closed fracture (principal); X58.XXXA Exposure to other specified factors, initial encounter | CPT/HCPCS: 73502 ==

== ENCOUNTER → 2021-11-05 13:43 | Outpatient (BNVA) | payer MEDICARE, OTHER, SELFPAY | PROVIDERS: PCP Family Medicine; Visit Provider Family Medicine | DX: I10 Essential (primary) hypertension (principal); D50.8 Other iron deficiency anemias; R30.0 Dysuria; N32.81 Overactive bladder | CPT/HCPCS: 80053; 85025 ==

== ENCOUNTER → 2021-11-08 15:10 | Outpatient (BNVA) | payer MEDICARE, OTHER, SELFPAY | PROVIDERS: PCP Family Medicine; Referring Provider Nurse Practitioner Family; Visit Provider Nurse Practitioner Family | DX: R30.0 Dysuria (principal); N32.81 Overactive bladder | CPT/HCPCS: 81000; 87077; 87086 ==

== ENCOUNTER → 2021-11-25 13:16 | Outpatient (BNVA) | payer MEDICARE, OTHER, SELFPAY | PROVIDERS: PCP Family Medicine; Visit Provider Orthopaedic Surgery | DX: M25.561 Pain in right knee (principal); G89.29 Other chronic pain; M25.761 Osteophyte, right knee | CPT/HCPCS: 73560; 73565 ==

== ENCOUNTER → 2021-12-17 10:18 | Outpatient (BNVA) | payer MEDICARE, OTHER, SELFPAY | PROVIDERS: PCP Orthopaedic Surgery; Visit Provider Orthopaedic Surgery | DX: Z01.812 Encounter for preprocedural laboratory examination (principal); Z20.822 Contact with and (suspected) exposure to COVID-19 | CPT/HCPCS: 87635 ==

== ENCOUNTER 2021-12-22 15:40 | Observation (INO) | payer MEDICARE, OTHER, SELFPAY ==
--- NOTE | 2021-12-16 16:59 | PC.SOCIAL ---
CM received a call from the Ortho clinic requesting that we reach out to patient to discuss her case. Patient is scheduled to have surgery on 12/22/21 and would like SNF placement following surgery patient will need to meet qualifying stay for SNF placement. Called and spoke w/ patient and made aware that for patient to go to SNF following surgery she would have to meet qualifying stay. Explained to patient that she could choose to private pay for SNF but patients states she cannot afford that. She does state that she reached out to the social working @ the [place] and was told the same thing. OLESYA once again explained that patient would have to have qualifying stay to go to SNF. She verbalized understanding.
[2021-12-19 12:04] VITALS: BMI 23.9
--- NOTE | 2021-12-19 12:17 | ECG_ITS ---
[facility] Test Date: 2021-12-19 Pat Name: Sharri Calvo Department: Room: Gender: Female Zinc Plater: : 1940 Requested By: Juan Kelley Order Number: [id number] Denice MD: Pete Jaramillo M.D. Measurements Intervals Pike Rate: 75 P: 35 MA: 179 QRS: 8 QRSD: 89 T: 56 QT: 356 QTc: 398 Interpretive Statements SINUS RHYTHM WITH SINUS ARRHYTHMIA MINIMAL VOLTAGE CRITERIA FOR LVH, CONSIDER NORMAL VARIANT [MEETS CRITERIA IN ONE OF: R(aVL), S(V1), R(V5), R(V5/V6)+S(V1)] SEPTAL MYOCARDIAL INFARCTION , OF INDETERMINATE AGE [40+ ms Q WAVE IN V1/V2] Compared to ECG 08/24/2021 02:17:54 No significant changes Electronically Signed On 12-20-2021 14:18:20 CREDIT DEPARTMENT MANAGER by Pete Jaramillo M.D. [id number]
[2021-12-19 12:50] LABS: Basophils # 0.1 10^3/uL (0.0-0.1); Basophils % 0.8 %; Eosinophils # 0.4 10^3/uL (0.0-0.8); Eosinophils % 4.2 %; Hematocrit 39.8 % (37.0-47.0); Hemoglobin 12.4 g/dL (11.5-15.3); Lymphocytes # 1.4 10^3/uL (0.8-4.8); Lymphocytes % 15.7 %; Mean Corpuscular HGB Conc 31.2 g/dL (30.0-36.0); Mean Corpuscular Hemoglobin 27.1 pg (28.0-34.0); Mean Corpuscular Volume 86.9 fl (81-99); Mean Platelet Volume 9.9 fL (7.4-10.4); Monocytes # 0.6 10^3/uL (0.2-0.9); Monocytes % 7.1 %; Neutrophils # 6.51 10^3/uL (1.8-7.7); Nucleated Red Blood Cells % 0 %; Platelet Count 305 10^3/cmm (130-400); Red Blood Count 4.58 10^6/uL (4.1-5.3); Red Cell Distribution Width 15.9 % (12.1-15.1)
--- NOTE | 2021-12-20 11:59 | P.ANESASSM_ITS ---
Pre-Anesthetic Assessment Pre-Anesthetic Assessment: Height/Weight: Height 1.7 m Weight 69.4 kg Preop Diagnosis: Left intratrochanteric hip fracture Proposed Procedure: Operation Date: 12/22/21 12:00 Proposed Procedures p Total Knee Arthroplasty(Right) - Kale Hayden MD Was Beta Alessandra taken within 24 hours: N/A Was Clonidine taken within 24 hours: N/A Social: Social History: No alcohol and No tobacco Exam: Pre-Anes Outpt Exam: alert, oriented x 3, clear to auscultation bilaterally and regular rate & rhythm Airway: Submandibular: WNL MP: 2 Dentition: Caps CV/HEM: CV/HEM: Anemia, HTN and Murmur Musc/skel: Musc/skel: Lower Back Pain Comments: Chronic pain Anesthetic Plan: ASA status: 3 Anesthesia: Regional (specify below) (SAB with adductor blk) Risk of > 500 ml blood loss (7ml/kg in children): No PFSH Anesthesia PFSH: Medical History Acute lumbar back pain Acute on chronic anemia Chronic low back pain Chronic pain of right knee Encounter for long-term opiate analgesic use Fall Fall Fracture of hip, left, closed Hypertension Hyponatremia Intertrochanteric fracture of left hip Begin to mobilize with therapy. Will need placement. Check hemoglobin in a.m. 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, lumbosacral region Stable burst fracture of unspecified lumbar vertebra, subsequent encounter for fracture with routine healing UTI (urinary tract infection) Wedge compression fracture of unspecified thoracic vertebra, sequela Surgical History H/O shoulder surgery Postoperative state Family History Other No pertinent family history Social History Second hand smoke exposure: No Alcohol intake: never History of recent travel: No Female Reproductive History: Spontaneous abortions: No Data Anesthesia CBC & Chem 7: 12/19/21 12:33 Other Labs: Laboratory Results - last 48 hr 12/19/21 12:33 WBC 9.0 RBC 4.58 Hgb 12.4 Hct 39.8 MCV 86.9 MCH 27.1 L MCHC 31.2 RDW 15.9 H Plt Count 305 MPV 9.9 Neut % (Auto) 72.0 Lymph % (Auto) 15.7 [place] % (Auto) 7.1 Eos % (Auto) 4.2 Baso % (Auto) 0.8 Neut # (Auto) 6.51 Lymph # (Auto) 1.4 [place] # (Auto) 0.6 Eos # (Auto) 0.4 Baso # (Auto) 0.1 Nucleated RBC % (auto) 0 Nucleated RBCs # 0.0 Cardiac Studies: Echocardiogram 08/24/21
[2021-12-22] VITALS (24 sets, daily range): BP systolic 106–167; BP diastolic 44–86; PULSE 67–99; RESP 16–27; TEMP 36.2–36.6; O2SAT 92–100
[2021-12-22] MEDS: gabapentin 300 mg Capsule PO ×2 (10:56→17:27)
[2021-12-22] MEDS: acetaminophen 500 mg Tablet 1000 MG PO ×2 (10:56→17:27)
[2021-12-22] MEDS: CELEcoxib 200 mg Capsule 400 MG PO (10:56)
[2021-12-22] MEDS: oxyCODONE 20 mg ER (12 HR) Tablet PO (10:57)
[2021-12-22] MEDS: sodium chloride 0.9% 1,000 ML 30 ML IV (11:06)
--- NOTE | 2021-12-22 11:33 | P.ANESUD_ITS ---
Pre-Anesthetic Update Pre-Anesthetic Assessment: Date of Surgery/Procedure: 12/22/21 Preop Sahra gnosis: OsteoarthritisRight knee Proposed Procedure: Operation Date: 12/22/21 12:00 Proposed Procedures p Total Knee Arthroplasty(Right) - Kale Hayden MD Any changes to Pre-Anesthetic Assessment?: No Last Intake: Intake Last Liquid Date 12/22/21 Last Liquid Time 05:00 Last Solid Date 12/21/21 Last Solid Time 17:00 Vitals: Temperature 98 F 12/22/21 10:42 Temperature Source Temporal Artery S can 12/22/21 10:42 Pulse Rate 79 12/22/21 10:42 Respiratory Rate 16 12/22/21 10:57 Respiratory Effort 12/22/21 10:57 Respiratory Depth Normal 12/22/21 10:57 Respiratory Patter n 12/22/21 10:57 Blood Pressure 160/86 12/22/21 10:42 Blood Pressure Zahra n 110 12/22/21 10:42 Pulse Oximetry 96 12/22/21 10:57 Oxygen Delivery Me thod 12/22/21 10:42 Exam: Pre-Anes Outpt Exam: alert, oriented x 3, clear to auscultation bilaterally and regular rate & rhythm Cardiac Studies: Echocardiogram 08/24/21
[2021-12-22] MEDS: tranexamic acid 1,000 mg/10mL SDV 1000 MG IV (12:29)
--- NOTE | 2021-12-22 12:48 | ANES.PROC ---
Anesthesia Procedures Procedure/Date: 12/22/21 Nerve Block ^: Nerve Block 1: Main Anesthesia: spinal anesthesia block Time Out Performed: Yes Consent: requested by attending/covering physician and from patient Nerve block location: adductor canal Anesthesia monitors applied: pulse oximetry, EKG, BP cuff and oxygen Nerve block position: supine Anesthetic Used: bupivacaine 0.5% Amount of anesthesia used (mL): 20 Ultrasound used to: recognize landmarks and visualize and ID femerol nerve Nerve Stimulator Used?: No Interscalene/Femoral BLK: 4 stimuplex 21 g needle used for position and inplane approach, visualize local anesthetic spread and no vascular puncture identified Injection: neg aspiration of heme Patient Tolerated Procedure: well and no complications Complications: none Additional Comments: After time out at 1145 patient prepped in usual fashon. Using sterile technique and real time US visualization of targets, needle entry, and LA spread total of 15 cc of LA injected incrementally with negative aspiration every 5 cc. Good block tolerated well. Image acquired, unable to print due to printer malfunction.
[2021-12-22] MEDS: tranexamic acid 1,000 mg/10mL SDV 1000 MG XX (13:16)
[2021-12-22] MEDS: EPINEPHrine 1 mg/mL INJ XX (13:16)
[2021-12-22] MEDS: ketorolac 30 mg/mL INJ XX (13:17)
[2021-12-22] MEDS: sodium chloride 0.9% 100 mL Bag XX (13:18)
--- NOTE | 2021-12-22 14:31 | P.OP_ITS ---
Operative Report Date of procedure: December 22, 2021 Pre-op Diagnosis: OsteoarthritisRight knee Post-op diagnosis: same Post-op Findings: Same Procedure Done: Right total knee arthroplasty Pathology: none sent Surgeon: Kale Hayden Anesthesia: Nerve Block (Spinal, adductor canal) Estimated blood loss (mL): 150 Complications: None Findings: The patient had severe eburnation over the lateral femoral condyle lateral tibial plateau patella and trochlea Condition: stable Disposition: PACU Procedure: The patient was taken to the operating room. Patient was given 1 g of tranexamic acid . The above anesthesia provided by the anesthesia service. A timeout was performed. The patient was prepped and draped in the usual fashion with the lower extremity exposed. A anterior incision was made, midline, from a point proximal to the patella to the distal tibial tubercle. The knee was entered through a medial parapatellar approach. The patella could be displaced laterally and the knee flexed. The patellar fat pad was resected to provide better visibility. Retractors were placed medially and laterally adjacent to the tibial plateau. The femoral canal was drilled in line with the longitudinal axis of the femur. Intramedullary femoral guide for used to make a distal femoral cut in 5 degrees of valgus, resecting 8 mm from the more prominent condyle. Next the extra medullary tibial guide was placed in alignment with the longitudinal axis of the tibia. The cutting guides were set to remove just over 9 mm from the high tibial plateau. The proximal tibia was then cut. The femoral measuring guide was then placed over the distal femur. Rotation was verified checking the relationship of the guide to the condyle and the trochlear groove. The femur was measured and cut for the desired posterior stable femoral component. The desired tibial baseplate was then chosen. A trial reduction with the femur tibial baseplate and polyethylene was done, assuring that the knee was stable throughout full motion. Ligament balancing required no additional releases after the cuts were made..The tibia was prepared for the tibial baseplate. Patellar thickness was then measured. The patella was cut removing articular cartilage and prepared for appropriate size patellar button. surfaces were cl eaned with a gentamicin solution. The femur tibia and patella were then cemented into place. The posterior capsule and collateral ligaments were then injected with a solution of 100 mL of 0.2% ropivacaine, 1 mL of a 1:1000 epinephrine solution, 30 mg of Toradol, and 1 g of tranexamic acid. final polyethylene component was then snapped into place into the tibia. The extensor retinaculum was closed with a running 1 Stratafix.. The subcutaneous tissues were closed with 2-0 Vicryl and the skin was closed with a running 4-0 Stratafix. The wound was covered with a Dermabond Prinio dressing. It was covered with 4xrs and a compressive Tubigauae was applied. The patient was taken to recovery room in stable condition. [employer] total knee arthroplasty components were used includin) Size 4 triathalon posterior stabilized femoral component 2) Size 4 universal tibial component 3) 35 mm /10 mm thickness cemented asymetric patella 4) Size 4/11 mm posterior stabilized tibial bearing insert
--- NOTE | 2021-12-22 14:39 | XR_ITS ---
WS: [id number] Right knee, AP and lateral views, 12/22/2021 Clinical Data: Right Total Knee arthroplasty Comparison: AP both knees, lateral and patellar views of the right knee, 11/25/2021. Findings: A right knee arthroplasty is in position. No loosening is seen. There are no fractures or dislocation s. There is still air in the joint space from surgery. XR/XR knee RT 1-2V [id number] Impression: Right knee arthroplasty.
--- NOTE | 2021-12-22 15:04 | ANE.PACU2 ---
Inpatient post-anesthesia follow up: Airway intact: Yes Vital signs: Temperature 97.2 F Pulse Rate 83 Respiratory Rate 22 Blood Pressure 145/60 Pulse Oximetry 96 Oxygen Delivery Me thod Room Air Oxygen Flow Rate Fraction of Inspir ed Oxygen Hydration adequate: Yes Nausea and vomiting: No Pain level: 1 Mental status: Baseline
[2021-12-22] MEDS: meperidine 50 mg/mL INJ 12.5 MG IVP (15:05)
[2021-12-22] MEDS: lanolin oint 7 gm 1 APPLIC TOPICAL (20:38)
[2021-12-22] MEDS: CELEcoxib 200 mg Capsule PO (23:16)
[2021-12-23] VITALS (7 sets, daily range): BP systolic 119–151; BP diastolic 66–78; PULSE 65–68; RESP 14–18; TEMP 36.4–36.7; O2SAT 95; BMI 23.9
[2021-12-23] MEDS: acetaminophen 500 mg Tablet 1000 MG PO ×2 (00:33→08:53)
[2021-12-23] MEDS: oxyCODONE 5 mg IR Tab/Cap 10 MG PO ×4 (00:43→13:20)
[2021-12-23] MEDS: sodium chloride 0.9% 1,000 ML 100 ML IV (02:23)
--- NOTE | 2021-12-23 07:50 | PM.PN ---
Subjective Subjective: Interval history: Pain controlled with oral medications. To be mobilized with therapy today. Vitals/I&O/Wt Last Vital Signs Temp 97.6 F 12/23/21 04:00 Pulse 65 12/23/21 04:00 Resp 14 12/23/21 04:20 BP 119/71 12/23/21 04:00 Pulse Ox 95 12/23/21 04:00 12/22/21 12/23/21 12/23/21 22:59 06:59 14:59 Intake Total 60 / 920 60 / 980 Output Total 700 / 1050 950 / 2000 Balance -640 / -130 -890 / -1020 Physical Exam Narrative: EXAM NARRATIVE: the knee incision was clean. They had no drainage. There is minimal swelling in the thigh and knee and the calf. No distal neurovascular deficits were noted Urinary Catheter Management^: Mccullough: Cath Placed During This Visit: yes Urinary Catheter Date of Insertion: 12/22/21 Urinary Catheter Time of Insertion: 13:14 Data : 12/19/21 12:33 A&P Assessment and plan (1) Status post right knee replacement: Status: Resolved (2) Osteoarthritis of right knee: Status: Acute Attestations Medical Necessity Statement*: Planned arrangements for discharge today per nursing home social worker Coding Level of Care Code Acute Fitting Room Operator for Kris Mittal Diagnoses Status post right knee replacement Z96.651 Osteoarthritis of right knee M17.11
--- NOTE | 2021-12-23 08:44 | PM.DCS ---
Discharge Providers Date of Admission: 12/22/21 15:40 Date of Discharge: December 23, 2021 Attending Provider at Admission: Kale Hayden MD Attending Provider at Discharge: Kale Hayden MD Primary Care Provider: Kale Hayden MD Diagnoses at Discharge Discharge Diagnosis (1) Status post right knee replacement: Status: Resolved (2) Osteoarthritis of right knee: Status: Acute Reason for Visit Reason for Visit: right total knee arthroplasty Hospital Course Hospital Course The patient tolerated surgery well. They remained hemodynamically stable. They was begun on aspirin and sequential compression dressings for DVT prophylaxis. The patient was mobilized with therapy beginning the day of surgery and by the first postoperative day independent with the walker. As the pain was adequately controlled and they were fully mobile they were discharged to a detention facility per the patient's request Physical Exam Narrative: EXAM NARRATIVE: My discharge physical exam Urinary Catheter Management^: Mccullough: Cath Placed During This Visit: yes Urinary Catheter Date of Insertion: 12/22/21 Urinary Catheter Time of Insertion: 13:14 Discharge Data Data Completed and Pending: Completed Studies During Hospitalization Category Date Time Status XR knee RT 1-2V 7 3560 Routine Exams 12/22/21 14:39 Completed Pending at discharge Category Date Time Status COVID [SARS Covid -2 Antigen] Routin e Lab 12/23/21 08:29 Ordered Hemoglobin AM LAB S Lab 12/23/21 04:00 Ordered Vitals: Last Vital Signs Temp 97.6 F 12/23/21 04:00 Pulse 65 12/23/21 04:00 Resp 14 12/23/21 04:20 BP 119/71 12/23/21 04:00 Pulse Ox 95 12/23/21 04:00 Discharge Plan Discharge Patient Disposition: Xfer SNF Condition: Stable Prescriptions: New celecoxib 200 mg Capsule 200 mg PO Q12H 14 Days Qty: 28 0RF gabapentin 300 mg Capsule 300 mg PO BID 7 Days Qty: 14 0RF Continued aspirin [Adult Low Dose Aspirin] 81 mg tablet,delayed release (DR/EC) 81 mg PO DAILY 0RF amlodipine 5 mg tablet 5 mg PO DAILY 30 Days Qty: 30 2RF hydrocodone-acetaminophen 10-325 mg tablet 2 tab PO TID PRN (Reason: pain) 30 Days Qty: 180 0RF ibuprofen 800 mg tablet 800 mg PO TID PRN (Reason: pain) 30 Days Qty: 90 1RF Discharge Orders: Discharge Order (Routine); Ordered 12/23/21 Ordered By: Kale Hayden Referrals: [facility] [Outside] Kale Hayden MD [Primary Care Provider] - 12/26/21 8:30 am Discharge Diet: Advance as tolerated Discharge Activity: Limit activity as instructed Patient Instructions: Opioid Safety Activity Restrictions/Additional Instructions: Okay to shower Keep Tubigauze sleeve in place for swelling. Okay to remove for hygiene. Apply FirstIce up to 20 min/hr for pain and swelling Take Celebrex twice a day for the next 15 days for pain , discontinue other anti-inflammatories Take Neurontin twice a day for 7 days. Take Tylenol 500mg (1-2 tabs) as needed 3 times a day for mild pain take previously prescribed hydrocodone for breakthrough pain. Exercises per physical therapy. May weight-bear as tolerated on total knee arthroplasty Discharge Attestations Time Spent in Discharge Care*: other Status at Discharge: Cognitive status at discharge: cognitively intact, Behavioral status at discharge: cooperative, Quality Metrics Clinical Quality Measures [ No reported AMI, CVA or VTE this stay] Coding Level of Care Code Acute [facility] note Diagnoses Status post right knee replacement Z96.651 Osteoarthritis of right knee M17.11
[2021-12-23] MEDS: aspirin 81 mg EC Tablet PO (08:52)
[2021-12-23] MEDS: amlodipine 5 mg Tablet PO (08:53)
[2021-12-23] MEDS: gabapentin 300 mg Capsule PO (08:53)
[2021-12-23] MEDS: CELEcoxib 200 mg Capsule PO (08:53)
--- NOTE | 2021-12-23 08:55 | W.PM.OPSUD ---
Surgery/Procedure H&P Update DATE OF PROCEDURE: December 22, 2021 DATE H&P PERFORMED: 11/25/21 PREOP DIAGNOSIS: OsteoarthritisRight knee PLANNED PROCEDURE: Operation Date: 12/22/21 12:00 Proposed Procedures p Total Knee Arthroplasty(Right) - Kale Hayden MD
[2021-12-23 11:20] LABS: Adenovirus Not Detected (NOT DETECT); Chlamydia Pneumoniae Not Detected (NOT DETECT); Coronavirus 229E,HKU1,NL63,OC4 Not Detected (NOT DETECT); Human Metapneumovirus Not Detected (NOT DETECT); Human Rhinovirus/Enterovirus Not Detected (NOT DETECT); Influenza A Not Detected (NOT DETECT); Influenza A H1 Not Detected (NOT DETECT); Influenza A H1-2009 Not Detected (NOT DETECT); Influenza A H3 Not Detected (NOT DETECT); Influenza B Not Detected (NOT DETECT); Mycoplasma Pneumoniae Not Detected (NOT DETECT); Parainfluenza Virus Type 1 Not Detected (NOT DETECT); Parainfluenza Virus Type 2 Not Detected (NOT DETECT); Parainfluenza Virus Type 3 Not Detected (NOT DETECT); Parainfluenza Virus Type 4 Not Detected (NOT DETECT); Respiratory Syncytial Virus A Not Detected (NOT DETECT); Respiratory Syncytial Virus B Not Detected (NOT DETECT); SARS-COV-2 Not Detected (NOT DETECT)
--- NOTE | 2021-12-23 12:12 | PC.NURSE ---
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
== END 2021-12-23 14:00 | disposition skilled nursing facility (03) ==
LOC: OBGYN 15:43
PROVIDERS: Anesthesiology; Admitting Provider Orthopaedic Surgery; PCP Orthopaedic Surgery; Visit Provider Orthopaedic Surgery
PROC: (CPT 27447; principal; 2021-12-22 11:40)
DX: M17.11 Unilateral primary osteoarthritis, right knee (principal); I10 Essential (primary) hypertension; G89.29 Other chronic pain; Z79.891 Long term (current) use of opiate analgesic; Z91.81 History of falling
CPT/HCPCS: 27447; 36415; 51702; 64447; 73560; 76942; 85025; 87635; 93005; 97110; 97116; 97161; 97165; 97530; C1776; G0378; J0171; J0690; J1580; J1885; J2175; J2795; J3490; J7030

== ENCOUNTER → 2022-02-04 11:16 | Outpatient (BNVA) | payer MEDICARE, OTHER, SELFPAY | PROVIDERS: PCP Orthopaedic Surgery; Visit Provider Orthopaedic Surgery | DX: Z96.651 Presence of right artificial knee joint (principal) | CPT/HCPCS: 73560; 73565 ==

== ENCOUNTER → 2022-07-08 11:17 | Outpatient (BNVA) | payer MEDICARE, OTHER, SELFPAY | PROVIDERS: PCP Family Medicine; Visit Provider Family Medicine | DX: I10 Essential (primary) hypertension (principal); S32.040A Wedge compression fracture of fourth lumbar vertebra, initial encounter for closed fracture; N32.81 Overactive bladder; Z13.220 Encounter for screening for lipoid disorders; Z13.6 Encounter for screening for cardiovascular disorders; R73.9 Hyperglycemia, unspecified; Z13.1 Encounter for screening for diabetes mellitus; M20.60 Acquired deformities of toe(s), unspecified, unspecified foot; L57.0 Actinic keratosis; E87.1 Hypo-osmolality and hyponatremia; M20.62 Acquired deformities of toe(s), unspecified, left foot; M54.50 Low back pain, unspecified; G89.29 Other chronic pain | CPT/HCPCS: 80048; 80061; 83036 ==

== ENCOUNTER → 2022-07-29 12:54 | Outpatient (BNVA) | payer MEDICARE, OTHER, SELFPAY | PROVIDERS: PCP Family Medicine; Visit Provider Podiatrist Foot & Ankle Surgery | DX: M20.42 Other hammer toe(s) (acquired), left foot (principal); S99.922A Unspecified injury of left foot, initial encounter; X58.XXXA Exposure to other specified factors, initial encounter | CPT/HCPCS: 73630; 99203 ==

== ENCOUNTER 2022-09-24 06:00 | Outpatient (RCR) | payer MEDICARE, OTHER, SELFPAY | END 2022-09-28 23:59 | disposition home or self-care (01) | LOC: MPT 06:00 | PROVIDERS: PCP Family Medicine; Visit Provider Family Medicine | DX: M54.50 Low back pain, unspecified (principal); G89.29 Other chronic pain; Z74.09 Other reduced mobility; Z78.9 Other specified health status; R54 Age-related physical debility | CPT/HCPCS: 97110; 97162 ==

== ENCOUNTER 2022-09-29 06:00 | Outpatient (RCR) | payer MEDICARE, OTHER, SELFPAY | END 2022-10-28 23:59 | disposition home or self-care (01) | LOC: MPT 06:00 | PROVIDERS: PCP Family Medicine; Visit Provider Family Medicine | DX: M54.50 Low back pain, unspecified (principal); G89.29 Other chronic pain; Z74.09 Other reduced mobility; Z78.9 Other specified health status; R54 Age-related physical debility | CPT/HCPCS: 97110; G0283 ==

== ENCOUNTER 2022-10-06 10:22 | Outpatient (CLI) | payer MEDICARE, OTHER, SELFPAY ==
--- NOTE | 2022-10-06 11:29 | MM_ITS ---
WS: [id number] Bilateral screening 3D tomosynthesis digital mammogram, 10/06/2022 Clinical Data: SCREENING Comparison: 08/05/2021, 03/23/2018, 08/06/2016, 05/13/2015, 03/30/2014, 03/07/2013. Findings: The breast parenchymal pattern shows heterogeneous density. No spiculated masses or clustered calcifi cations are seen. There are no secondary signs of carcinoma. There are vascular calcifications. MM/[place] [id number] Impression: 1. Negative bilateral mammogram unchanged. 2. Recommend annual screening mammograms. BIRADS: 1-Negative FOLLOW UP: 1 Year Follow-up The CAD drawing checker was used.
== END 2022-10-06 10:23 | disposition home or self-care (01) ==
LOC: RAD 10:22
PROVIDERS: PCP Family Medicine; Visit Provider Obstetrics & Gynecology
DX: Z12.31 Encounter for screening mammogram for malignant neoplasm of breast (principal)
CPT/HCPCS: 77063; 77067

== ENCOUNTER 2022-10-29 06:00 | Outpatient (RCR) | payer MEDICARE, OTHER, SELFPAY | END 2022-11-28 23:59 | disposition home or self-care (01) | LOC: MPT 06:00 | PROVIDERS: PCP Family Medicine; Visit Provider Family Medicine | DX: M54.50 Low back pain, unspecified (principal); G89.29 Other chronic pain; R54 Age-related physical debility; Z74.09 Other reduced mobility; Z78.9 Other specified health status | CPT/HCPCS: 97110; G0283 ==

== ENCOUNTER → 2022-11-25 14:28 | Outpatient (BNVA) | payer MEDICARE, SELFPAY | PROVIDERS: PCP Family Medicine; Visit Provider Family Medicine | DX: R39.9 Unspecified symptoms and signs involving the genitourinary system (principal); N39.0 Urinary tract infection, site not specified | CPT/HCPCS: 81000 ==

== ENCOUNTER 2022-11-29 06:00 | Outpatient (RCR) | payer MEDICARE, OTHER, SELFPAY | END 2022-12-29 23:59 | disposition home or self-care (01) | LOC: MPT 06:00 | PROVIDERS: PCP Family Medicine; Visit Provider Family Medicine | DX: M54.50 Low back pain, unspecified (principal); G89.29 Other chronic pain; Z74.09 Other reduced mobility; Z78.9 Other specified health status; R54 Age-related physical debility | CPT/HCPCS: 97110; G0283 ==

== ENCOUNTER 2022-12-30 06:00 | Outpatient (RCR) | payer MEDICARE, OTHER, SELFPAY | END 2023-01-26 23:59 | disposition home or self-care (01) | LOC: MPT 06:00 | PROVIDERS: PCP Family Medicine; Visit Provider Family Medicine | DX: M54.50 Low back pain, unspecified (principal); G89.29 Other chronic pain; Z74.09 Other reduced mobility; Z78.9 Other specified health status; R54 Age-related physical debility | CPT/HCPCS: 97110; 97530; G0283 ==

== ENCOUNTER → 2023-01-21 12:19 | Outpatient (BNVA) | payer MEDICARE, SELFPAY | PROVIDERS: PCP Family Medicine; Visit Provider Family Medicine | DX: R10.9 Unspecified abdominal pain (principal); I10 Essential (primary) hypertension; N32.81 Overactive bladder; R30.0 Dysuria; S32.040A Wedge compression fracture of fourth lumbar vertebra, initial encounter for closed fracture; G89.29 Other chronic pain; Z96.0 Presence of urogenital implants; Z87.440 Personal history of urinary (tract) infections; M54.50 Low back pain, unspecified; X58.XXXA Exposure to other specified factors, initial encounter | CPT/HCPCS: 81000; 87086 ==

== ENCOUNTER 2023-01-27 06:00 | Outpatient (RCR) | payer MEDICARE, OTHER, SELFPAY | END 2023-02-26 23:59 | disposition home or self-care (01) | LOC: MPT 06:00 | PROVIDERS: PCP Family Medicine; Visit Provider Family Medicine | DX: M54.50 Low back pain, unspecified (principal); G89.29 Other chronic pain | CPT/HCPCS: 97110; G0283 ==

== ENCOUNTER → 2023-06-10 13:27 | Outpatient (BNVA) | payer MEDICARE, OTHER, SELFPAY | PROVIDERS: PCP Family Medicine; Visit Provider Family Medicine | DX: S20.219A Contusion of unspecified front wall of thorax, initial encounter (principal); K59.03 Drug induced constipation; T40.2X5A Adverse effect of other opioids, initial encounter; X58.XXXA Exposure to other specified factors, initial encounter | CPT/HCPCS: 71046; 74018 ==

== ENCOUNTER 2023-06-14 08:49 | Emergency (ER) | payer MEDICARE, OTHER, MEDICAID, SELFPAY ==
[2023-06-14 08:54] VITALS: BP 124/101; PULSE 89; RESP 18; TEMP 36.9; O2SAT 95; BMI 23.6
--- NOTE | 2023-06-14 09:08 | XR_ITS ---
WS: [id number] Exam: XR cervical spine 3V* [id number] Date/Time of Exam: 06/14/2023 9:15 AM Reason For Exam: trauma No fracture or dislocation. Degenerative disc change and spondylosis from C4 to C7. Facet DJD at all levels. Normal paraspinal soft tissues. Unremarkable odontoid. XR/XR cervical spine 3V* [id number] IMPRESSION: 1. Degenerative changes. No fracture or malalignment.
--- NOTE | 2023-06-14 09:08 | XR_ITS ---
WS: [id number] Exam: XR acute abdomen series [id number] Date/Time of Exam: 06/14/2023 9:14 AM Reason For Exam: abd pain PA chest. Comparison 08/23/2021. The lungs are fully expanded and clear. Normal cardiomediastinal silhouette. No pleural effusions. De generative change and mild dextroscoliosis of the T-spine. Old fracture deformity and advanced degene rative change of the right shoulder. Flat and erect abdomen. No bowel obstruction or free air. Mild ileus. No sign of organ enlargement. B one cement identified in the region of the right and left sacrum. Hardware in the visualized proximal left femur. A pessary noted in the central pelvis. XR/XR acute abdomen series [id number] IMPRESSION: 1. No acute cardiopulmonary finding. 2. Mild ileus. No acute abdominal process.
--- NOTE | 2023-06-14 09:09 | CTR_ITS ---
PROCEDURE INFORMATION: Exam: CT Head Without Contrast Exam date and time: 06/14/2023 9:18 AM Age: 82 years old Clinical indication: Injury or trauma; Fall; Blunt trauma (contusions or hematomas); Without loss of consciousness; Additional info: Closed head injury TECHNIQUE: Imaging protocol: Computed tomography of the head without contrast. Radiation optimization: All CT scans at this facility use at least one of these dose optimization techniques: automated exposure control; mA and/or kV adjustment per patient size (includes targeted exams where dose is matched to clinical indication); or iterative reconstruction. REPORTING DATA: Count of CT and Cardiac NM exams in prior 12 months: This patient has received 0 known CTs and 0 known cardiac nuclear medicine studies in the 12 months prior to the current study. COMPARISON: CT head wo con* [id number] 08/23/2021 6:33 PM RADIATION DOSE METRICS: Total DLP (mGy-cm): 1061.22 FINDINGS: Brain: Diffuse cerebral atrophy, consistent with patient's age. No hemorrhage. Preserved mark-white matter differentiation. Cerebral white matter hypoattenuation in keeping with chronic microvascular ischemic change. No mass effect. Intracranial vascular calcifications. Cerebral ventricles: Ventricles are in proportion to the degree of atrophy. Paranasal sinuses: Mild patchy frontal sinus, bilateral ethmoid air cell, and right sphenoid sinus opacification. Small right sphenoid sinus air-fluid level. Mastoid air cells: Visualized mastoid air cells are well aerated. Bones/joints: Severe bilateral TMJ degenerative changes. Soft tissues: Unremarkable. CT/CT head wo con* [id number] IMPRESSION: 1. No acute intracranial abnormality. 2. Severe bilateral TMJ degenerative change. 3. Mild paranasal sinus disease.
--- NOTE | 2023-06-14 09:11 | W.ED.ABDPA2 ---
HPI - Abdominal Pain General: Chief Complaint: Abdominal Pain Stated Complaint: ABD PAIN Time Seen by Provider: 06/14/23 08:52 Source: patient Mode of arrival: EMS History of Present Illness: 82-year-old female presents emergency room with abdominal discomfort. She states she has had intermittent abdominal pain for last week she has not had a bowel movement for the last 4 days. She stated about a week ago she got very weak in her legs and fell then fell again 3 days ago. She hit the back of her head when she fell 3 days ago but there she denies any loss consciousness denies any neck pain no fever sweats chills cough or shortness of breath. She has a vague chest discomfort mostly when she takes a deep breath which also exacerbates her abdominal pain. She was recently treated for a UTI for the similar symptoms. She denies any current dysuria urgency or frequency or any specific flank pain. She had seen her primary care doctor and was given Colace for constipation she states she has taken the last several days without relief of her symptoms. MD elicited complaint: abdominal pain Onset (ago): day(s) Location: Epigastric Severity: moderate Quality: cramping Exacerbating factors: other (Inspiration) Relieving factors: nothing Associated Symptoms: Reports poor appetite; Denies anorexia, belching, bloating, change in bowel habits, change in stool character, chills, coffee ground emesis, constipation, GI cramping, diarrhea, dyspepsia, dysuria, excessive flatus, fever(s), heartburn, hematochezia, hematuria, hematemesis, fecal incontinence, loose stools, melena, nausea, syncope and vomiting Review of Systems Const: Denies: fever(s) or chills Eyes: Denies: change in vision Card: Reports: chest pain; Denies: palpitations, irregular heart rhythm, edema or syncope GI: Reports: abdominal pain; Denies: nausea, vomiting, hematemesis, coffee ground emesis, heartburn, diarrhea, constipation, bloating, GI cramping, belching, excessive flatus, fecal incontinence, change in bowel habits, change in stool character, hematochezia or melena : Denies: flank pain, dysuria, urinary frequency, urinary urgency or hematuria Musc: Denies: neck pain or back pain PFS ED PFSH: Medical History Acute lumbar back pain Acute on chronic anemia Chronic low back pain Chronic pain of right knee Encounter for long-term opiate analgesic use Fall Fall Fracture of hip, left, closed Hypertension Hyponatremia Intertrochanteric fracture of left hip Begin to mobilize with therapy. Will need placement. Check hemoglobin in a.m. 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, lumbosacral region Stable burst fracture of unspecified lumbar vertebra, subsequent encounter for fracture with routine healing Wedge compression fracture of unspecified thoracic vertebra, sequela Surgical History H/O shoulder surgery Postoperative state Family History Other No pertinent family history Social History Smoking and tobacco status: never smoked Second hand smoke exposure: No Alcohol intake: never Substance/Drug Use: never Female Reproductive History: Spontaneous abortions: No Physical Exam Const: GENERAL APPEARANCE: cooperative and comfortable ORIENTATION/CONSCIOUSNESS: Yes awake and Yes oriented to place HENMT: COMMON NORMALS: normocephalic, atraumatic and hearing grossly normal bilaterally HEAD & SCALP: normocephalic and atraumatic Resp: COMMON NORMALS: normal respiratory effort, No retractions, No use of accessory muscles and clear to auscultation bilaterally AUSCULTATION: clear to auscultation bilaterally Cardio: COMMON NORMALS: regular rate, regular rhythm and No murmurs present (Cardio) RATE: regular rate RHYTHM: regular rhythm GI: COMMON NORMALS: Soft to palpation and No hepatosplenomegaly present AUSCULTATION: Yes normoactive bowel sounds PALPATION: Yes Soft to palpation, No Tenderness to palpation present (GI), No Guarding due to palpation present (GI) and Yes No hepatosplenomegaly present Extremity: COMMON NORMALS: normal to inspection, capillary refill normal, no clubbing, cyanosis or edema, no calf tenderness and no pedal edema Neuro: SENSORIUM/ORIENTATION: Yes oriented to place Skin: COMMON NORMALS: no rashes or lesions noted GENERAL SKIN EXAM: no rashes or lesions noted Course Vital Signs: Vital signs: Vital Signs Temperature 98.4 F 06/14/23 08:54 Pulse Rate 91 06/14/23 13:19 Respiratory Rate 20 H 06/14/23 09:57 Blood Pressure 185/99 06/14/23 13:19 Pulse Oximetry 100 06/14/23 13:19 Oxygen Delivery Me thod Room Air 06/14/23 08:54 MDM - Abdominal Pain Medical Decision Making Benign abdominal exam CT head abdomen negative Labs reviewed mild hyperkalemia otherwise no other significant finding no signs of UTI. Discharge patient home lactulose for relief of moderate constipation. Believe it is due to her opioid therapy recommend she stop the Colace use MiraLAX titrated up to effective dose follow-up with primary care Medical Records I reviewed the patient's medical records. Lab Data I reviewed the patient's lab results. 06/14/23 09:45 06/14/23 09:45 Labs/Radiology: Radiology Impressions Cervical Spine X-Ray 06/14/23 09:08 IMPRESSION: 1. Degenerative changes. No fracture or malalignment. Chest/Abdomen X-ray 06/14/23 09:08 IMPRESSION: 1. No acute cardiopulmonary finding. 2. Mild ileus. No acute abdominal process. Head CT 06/14/23 09:09 IMPRESSION: 1. No acute intracranial abnormality. 2. Severe bilateral TMJ degenerative change. 3. Mild paranasal sinus disease. Abdomen/Pelvis CT 06/14/23 09:50 IMPRESSION: 1. No acute findings. 2. Chronic and incidental findings as above. ADDENDUM: 06/14/23 1059 Addendum to note that appearance of mild qxsq-xedaozd-vuur-right hydronephrosis is similar to 2019, possibly slightly increased, and may represent renal sinus cysts rather than true hydronephrosis. Laboratory Results WBC 11.1 10^3/uL (4.0-10.0) H 06/14/23 09:45 RBC 4.72 10^6/uL (4.1-5.3) 06/14/23 09:45 Hgb 13.8 g/dL (11.5-15.3) 06/14/23 09:45 Hct 42.7 % (37.0-47.0) 06/14/23 09:45 MCV 90.5 fl (81-99) 06/14/23 09:45 MCH 29.2 pg (28.0-34.0) 06/14/23 09:45 MCHC 32.3 g/dL (30.0-36.0) 06/14/23 09:45 RDW 14.0 % (12.1-15.1) 06/14/23 09:45 Plt Count 206 10^3/cmm (130-400) 06/14/23 09:45 MPV 9.8 fL (7.4-10.4) 06/14/23 09:45 Neut % (Auto) 71.2 % 06/14/23 09:45 Lymph % (Auto) 11.0 % 06/14/23 09:45 [place] % (Auto) 12.9 % 06/14/23 09:45 Eos % (Auto) 1.3 % 06/14/23 09:45 Baso % (Auto) 0.4 % 06/14/23 09:45 Neut # (Auto) 7.93 10^3/uL (1.8-7.7) H 06/14/23 09:45 Lymph # (Auto) 1.2 10^3/uL (0.8-4.8) 06/14/23 09:45 [place] # (Auto) 1.4 10^3/uL (0.2-0.9) H 06/14/23 09:45 Eos # (Auto) 0.1 10^3/uL (0.0-0.8) 06/14/23 09:45 Baso # (Auto) 0.1 10^3/uL (0.0-0.1) 06/14/23 09:45 Nucleated RBC % (auto) 0 % 06/14/23 09:45 Nucleated RBCs # 0.0 /100WBC 06/14/23 09:45 Sodium 131 mmol/L (136-145) L 06/14/23 09:45 Potassium 3.2 mmol/L (3.5-5.1) L 06/14/23 09:45 Chloride 96 mmol/L (98-107) L 06/14/23 09:45 Carbon Dioxide 21 mmol/L (22-29) L 06/14/23 09:45 Anion Gap 17.2 (5-19) 06/14/23 09:45 BUN 15 mg/dL (8-23) 06/14/23 09:45 Creatinine 0.8 mg/dL (0.5-0.9) 06/14/23 09:45 GFR Calculation Not Reportable 06/14/23 09:45 Glucose 118 mg/dL (65-115) H 06/14/23 09:45 Calculated Osmolality 274 mOsm/kg (285-295) L 06/14/23 09:45 Calcium 9.4 mg/dL (8.5-10.5) 06/14/23 09:45 Total Bilirubin 0.6 mg/dL (0.15-1.2) 06/14/23 09:45 AST 17 U/L (0-32) 06/14/23 09:45 ALT 13 U/L (0-33) 06/14/23 09:45 Alkaline Phosphatase 141 U/L (35-105) H 06/14/23 09:45 Total Protein 6.7 g/dL (6.6-8.7) 06/14/23 09:45 Albumin 2.8 g/dL (3.5-5.2) L 06/14/23 09:45 Globulin 3.9 g/dL (1.3-4.6) 06/14/23 09:45 Lipase 7 U/L (13-60) L 06/14/23 09:45 Urine Color Yellow (Yellow) 06/14/23 11:34 Urine Appearance Hazy (CLEAR) A 06/14/23 11:34 Urine pH 6.5 (5-7) 06/14/23 11:34 Ur Specific [place] 1.005 (1.005-1.030) 06/14/23 11:34 Urine Protein Neg (Negative) 06/14/23 11:34 Urine Glucose (UA) Norm (Normal) 06/14/23 11:34 Urine Ketones Negative (Negative) 06/14/23 11:34 Urine Blood Neg (Negative) 06/14/23 11:34 Urine Nitrate Negative (Negative) 06/14/23 11:34 Urine Bilirubin Neg (Negative) 06/14/23 11:34 Urine Urobilinogen 1 mg/dL (Negative) H 06/14/23 11:34 Ur Leukocyte Esterase Negative (Negative) 06/14/23 11:34 Urine RBC None /hpf (0-2) 06/14/23 11:34 Urine WBC 0-4 /hpf (0-5) H 06/14/23 11:34 Ur Squamous Epith Cells 15-25 /hpf (0-5) H 06/14/23 11:34 Amorphous Sediment Not Reportable 06/14/23 11:34 Urine Bacteria Trace /hpf (NONE) 06/14/23 11:34 Discharge Plan Discharge Patient Disposition: Home Clinical Impression: Abdominal pain, Constipation Condition: Stable Prescriptions: New ClearLax 17 gram/dose powder 17 g PO DAILY Qty: 850 0RF No Action aspirin [Adult Low Dose Aspirin] 81 mg tablet,delayed release (DR/EC) 81 mg PO QAM Xtampza ER 13.5 mg cap,sprinkl,ER12hr(DONT CRUSH) 13.5 mg PO BID 30 Days Qty: 60 0RF Rx Instructions: must administer with a meal/food ibuprofen 800 mg tablet 800 mg PO TID PRN (Reason: pain) 30 Days Qty: 90 1RF oxybutynin chloride 10 mg tablet extended release 24hr 10 mg PO BEDTIME amlodipine 5 mg tablet 5 mg PO QAM docusate sodium 100 mg capsule 100 mg PO BID PRN (Reason: Constipation) clotrimazole-betamethasone 1-0.05 % cream 1 applic TOPICAL BID PRN (Reason: irritation) Discharge Orders: Discharge ED (Routine); Ordered 06/14/23 Ordered By: Golden Andujar Referrals: Gia Schafer MD [Primary Care Provider] - Discharge Diet: Usual diet Discharge Activity: Increase activity as tolerated Patient Instructions: Constipation (ED), Abdominal Pain (ED), Opioid Safety, Pain Management Coding Level of Care Code ED [employer] Sales[employer] for Kris Mittal
--- NOTE | 2023-06-14 09:50 | CTR_ITS ---
PROCEDURE INFORMATION: Exam: CT Abdomen And Pelvis Without Contrast Exam date and time: 06/14/2023 10:10 AM Age: 82 years old Clinical indication: Abdominal pain; Prior surgery; Surgery date: 6+ months; Surgery type: Tubal, left hip; Additional info: Abdominal pain x 5 days, PT states pain when breathing TECHNIQUE: Imaging protocol: Computed tomography of the abdomen and pelvis without contrast. Radiation optimization: All CT scans at this facility use at least one of these dose optimization techniques: automated exposure control; mA and/or kV adjustment per patient size (includes targeted exams where dose is matched to clinical indication); or iterative reconstruction. REPORTING DATA: Count of CT and Cardiac NM exams in prior 12 months: This patient has received 0 known CTs and 0 known cardiac nuclear medicine studies in the 12 months prior to the current study. COMPARISON: 1. CT Thoracic Spine [place] IV* [id number] 12/12/2018 12:[address] [place] [id number] 04/11/2019 11:02 AM 3. CR XR acute abdomen series [id number] 06/14/2023 9:20 AM RADIATION DOSE METRICS: Total DLP (mGy-cm): 540.92 FINDINGS: Lungs: Mild bibasilar linear scarring and/or atelectasis. Diaphragm: Small hiatal hernia. Liver: Multiple hepatic cysts are redemonstrated, the largest at the left lobe measuring 5 cm with internal attenuation averaging 23 Hounsfield units, previously fluid density less than 20 Hounsfield units on comparison CTs. Some hepatic hypodensities are subcentimeter in size, too small to completely characterize. Gallbladder and bile ducts: Normal. No calcified stones. No ductal dilation. Pancreas: Diffuse pancreatic atrophy. Spleen: Numerous tiny splenic calcifications in keeping with sequela of old granulomatous disease. Adrenal glands: Normal. No mass. Kidneys and ureters: Mild icnu-tmxznuo-mwyy-right hydronephrosis. Ureters are not well visualized along their entire course, but are not substantially dilated and no calcifications are seen along their expected course. Stomach and bowel: Colonic diverticulosis. No bowel dilatation. Appendix: No evidence of appendicitis. Intraperitoneal space: Unremarkable. No free air. No significant fluid collection. Vasculature: Moderate systemic atherosclerotic calcification without aortic aneurysm. Lymph nodes: Unremarkable. No enlarged lymph nodes. Urinary bladder: Unremarkable as visualized. Reproductive: Pessary device in place. Otherwise unremarkable. Bones/joints: No acute fracture. Chronic T11 vertebral body compression fracture. Stable mild compression deformity of the L3 and L4 vertebral bodies. Old healed left inferior pubic ramus fracture. Partially visualized left femoral nail and screw. Stable augmentation material at the bilateral sacrum. Degenerative changes along the spine and sacroiliac joints. Soft tissues: Unremarkable. CT/CT abdomen pelvis wo con [id number] IMPRESSION: 1. No acute findings. 2. Chronic and incidental findings as above.
[2023-06-14 09:56] LABS: Basophils # 0.1 10^3/uL (0.0-0.1); Basophils % 0.4 %; Eosinophils # 0.1 10^3/uL (0.0-0.8); Eosinophils % 1.3 %; Hematocrit 42.7 % (37.0-47.0); Hemoglobin 13.8 g/dL (11.5-15.3); Lymphocytes # 1.2 10^3/uL (0.8-4.8); Mean Corpuscular HGB Conc 32.3 g/dL (30.0-36.0); Mean Corpuscular Hemoglobin 29.2 pg (28.0-34.0); Mean Corpuscular Volume 90.5 fl (81-99); Mean Platelet Volume 9.8 fL (7.4-10.4); Monocytes # 1.4 10^3/uL (0.2-0.9); Monocytes % 12.9 %; Neutrophils # 7.93 10^3/uL (1.8-7.7); Neutrophils % 71.2 %; Nucleated Red Blood Cells % 0 %; Platelet Count 206 10^3/cmm (130-400); Red Blood Count 4.72 10^6/uL (4.1-5.3); White Blood Count 11.1 10^3/uL (4.0-10.0)
[2023-06-14 09:57] VITALS: PULSE 84; RESP 20; O2SAT 96
[2023-06-14 10:18] LABS: Alanine Aminotransferase 13 U/L (0-33); Albumin Level 2.8 g/dL (3.5-5.2); Alkaline Phosphatase 141 U/L (35-105); Anion Gap 17.2 (5-19); Aspartate Amino Transferase 17 U/L (0-32); Blood Urea Nitrogen 15 mg/dL (8-23); Calcium 9.4 mg/dL (8.5-10.5); Carbon Dioxide 21 mmol/L (22-29); Chloride 96 mmol/L (98-107); Globulin 3.9 g/dL (1.3-4.6); Glucose 118 mg/dL (65-115); Lipase 7 U/L (13-60); Osmolality Calculated 274 mOsm/kg (285-295); Potassium 3.2 mmol/L (3.5-5.1); Sodium 131 mmol/L (136-145); Total Bilirubin 0.6 mg/dL (0.15-1.2); Total Protein 6.7 g/dL (6.6-8.7)
[2023-06-14 11:30] VITALS: BP 120/103; PULSE 91
[2023-06-14 11:51] LABS: Bilirubin Urine Neg (Negative); Blood Urine Neg (Negative); Glucose Urine UA Norm (Normal); Ketones Urine Negative (Negative); Nitrate Urine Negative (Negative); Protein Urine Neg (Negative); Specific Gravity, Urine 1.005 (1.005-1.030); Urine Appearance Hazy (CLEAR); Urine Color Yellow (Yellow); pH Urine 6.5 (5-7)
[2023-06-14 11:52] LABS: Add Urine Culture? No; Add Urine Microscopic? YES; Bacteria Urine TRACE /hpf; Leukocyte Esterase Urine Negative (Negative); Squamous Epithelial Cell Urine 15-25 /hpf (0-5); Urobilinogen Urine 1 mg/dL (Negative); WBC Urine 0-4 /hpf (0-5)
[2023-06-14 12:00] VITALS: BP 168/83; PULSE 86; O2SAT 95
[2023-06-14 13:19] VITALS: BP 185/99; PULSE 91; O2SAT 100
== END 2023-06-14 13:21 | disposition home or self-care (01) ==
PROVIDERS: Emergency Provider Family Medicine; PCP Family Medicine
DX: K59.00 Constipation, unspecified (principal); Z79.82 Long term (current) use of aspirin; I10 Essential (primary) hypertension
CPT/HCPCS: 36415; 70450; 72040; 74022; 74176; 80053; 81001; 83690; 85025; 99285

== ENCOUNTER → 2023-07-02 16:30 | Outpatient (BNVA) | payer MEDICARE, MEDICAID, SELFPAY | PROVIDERS: PCP Family Medicine; Referring Provider Family Medicine; Visit Provider Family Medicine | DX: R30.0 Dysuria (principal) | CPT/HCPCS: 81000; 87086 ==

== ENCOUNTER → 2023-07-19 13:30 | Outpatient (BNVA) | payer MEDICARE, MEDICAID, SELFPAY | PROVIDERS: PCP Family Medicine; Visit Provider Family Medicine | DX: I10 Essential (primary) hypertension (principal); R63.0 Anorexia; N32.81 Overactive bladder; R53.83 Other fatigue; G89.29 Other chronic pain; M54.50 Low back pain, unspecified; R53.82 Chronic fatigue, unspecified | CPT/HCPCS: 80048; 82607 ==

== ENCOUNTER 2023-07-30 06:00 | Outpatient (RCR) | payer MEDICARE, OTHER, MEDICAID, SELFPAY | END 2023-08-28 23:59 | disposition home or self-care (01) | LOC: MPT 06:00 | PROVIDERS: Visit Provider Family Medicine | DX: M54.50 Low back pain, unspecified (principal); G89.29 Other chronic pain | CPT/HCPCS: 97110; 97116; 97162; G0283 ==

== ENCOUNTER 2023-08-29 06:00 | Outpatient (RCR) | payer MEDICARE, OTHER, MEDICAID, SELFPAY | END 2023-09-28 23:59 | disposition home or self-care (01) | LOC: MPT 06:00 | PROVIDERS: Visit Provider Family Medicine | DX: M54.50 Low back pain, unspecified (principal) | CPT/HCPCS: 97110; G0283 ==

== ENCOUNTER 2023-09-29 06:00 | Outpatient (RCR) | payer MEDICARE, MEDICAID, SELFPAY | END 2023-10-28 23:59 | disposition home or self-care (01) | LOC: MPT 06:00 | PROVIDERS: Visit Provider Family Medicine | DX: M54.50 Low back pain, unspecified (principal); G89.29 Other chronic pain | CPT/HCPCS: 97110; G0283 ==

== ENCOUNTER 2023-10-29 06:00 | Outpatient (RCR) | payer MEDICARE, MEDICAID, SELFPAY | END 2023-11-28 23:59 | disposition home or self-care (01) | LOC: MPT 06:00 | PROVIDERS: Visit Provider Family Medicine | DX: M54.50 Low back pain, unspecified (principal); G89.29 Other chronic pain | CPT/HCPCS: 97110; G0283 ==

== ENCOUNTER 2023-11-29 06:00 | Outpatient (RCR) | payer MEDICARE, OTHER, MEDICAID, SELFPAY | END 2023-12-29 23:59 | disposition home or self-care (01) | LOC: MPT 06:00 | PROVIDERS: Visit Provider Family Medicine | DX: M54.50 Low back pain, unspecified (principal); G89.29 Other chronic pain | CPT/HCPCS: 97110; 97116; G0283; L3332 ==

== ENCOUNTER 2023-12-30 06:00 | Outpatient (RCR) | payer MEDICARE, OTHER, MEDICAID, SELFPAY | END 2024-01-27 23:59 | disposition home or self-care (01) | LOC: MPT 06:00 | PROVIDERS: Visit Provider Family Medicine | DX: M54.50 Low back pain, unspecified (principal); G89.29 Other chronic pain | CPT/HCPCS: 97110; G0283 ==

== ENCOUNTER → 2024-01-06 14:40 | Outpatient (BNVA) | payer MEDICARE, OTHER, SELFPAY | PROVIDERS: Family Provider Family Medicine; PCP Family Medicine; Referring Provider Family Medicine; Visit Provider Family Medicine | DX: N30.00 Acute cystitis without hematuria (principal) | CPT/HCPCS: 81000; 87086 ==

== ENCOUNTER → 2024-01-07 11:36 | Outpatient (BNVA) | payer MEDICARE, MEDICAID, SELFPAY | PROVIDERS: Visit Provider Nurse Practitioner | DX: N30.00 Acute cystitis without hematuria (principal) | CPT/HCPCS: 81000; 87086 ==

== ENCOUNTER 2024-01-28 06:00 | Outpatient (RCR) | payer MEDICARE, MEDICAID, SELFPAY | END 2024-02-27 23:59 | disposition home or self-care (01) | LOC: MPT 06:00 | PROVIDERS: PCP Obstetrics & Gynecology; Visit Provider Family Medicine | DX: M54.50 Low back pain, unspecified (principal); G89.29 Other chronic pain | CPT/HCPCS: 97110; 97140; G0283 ==

== ENCOUNTER 2024-02-03 10:24 | Outpatient (CLI) | payer MEDICARE, MEDICAID, SELFPAY ==
--- NOTE | 2024-02-03 10:30 | MM_ITS ---
WS: [id number] Bilateral screening 3D tomosynthesis digital mammogram, 02/03/2024 Clinical Data: SCREENING Comparison: 10/06/2022, 08/05/2021, 03/23/2018, 03/06/2016, 05/13/2015, 03/30/2014, 03/07/2013. Findings: The breast parenchymal pattern shows heterogeneous density. No spiculated masses or clustered calcifi cations are seen. There are no secondary signs of carcinoma. There are vascular calcifications. Impression: 1. Negative bilateral mammogram unchanged. 2. Recommend annual screening mammograms. MM/[place] [id number] BIRADS: 1-Negative FOLLOW UP: 1 Year Follow-up The CAD glass checker was used.
== END 2024-02-03 10:25 | disposition home or self-care (01) ==
LOC: MOBLMAM 10:32
PROVIDERS: PCP Obstetrics & Gynecology; Visit Provider Obstetrics & Gynecology
DX: Z12.31 Encounter for screening mammogram for malignant neoplasm of breast (principal)
CPT/HCPCS: 77063; 77067

== ENCOUNTER 2024-02-28 06:00 | Outpatient (RCR) | payer MEDICARE, OTHER, MEDICAID, SELFPAY | END 2024-03-28 23:59 | disposition home or self-care (01) | LOC: MPT 06:00 | PROVIDERS: PCP Obstetrics & Gynecology; Visit Provider Family Medicine | DX: M54.50 Low back pain, unspecified (principal); G89.29 Other chronic pain | CPT/HCPCS: 97110; G0283 ==

== ENCOUNTER → 2024-03-22 10:05 | Outpatient (BNVA) | payer MEDICARE, MEDICAID, SELFPAY | PROVIDERS: PCP Family Medicine; Visit Provider Family Medicine | DX: N30.00 Acute cystitis without hematuria (principal) | CPT/HCPCS: 81000 ==

== ENCOUNTER 2024-03-29 06:00 | Outpatient (RCR) | payer MEDICARE, MEDICAID, SELFPAY | END 2024-04-18 23:59 | disposition home or self-care (01) | LOC: MPT 06:00 | PROVIDERS: PCP Family Medicine; Visit Provider Family Medicine | DX: M54.50 Low back pain, unspecified (principal); G89.29 Other chronic pain | CPT/HCPCS: 97110; G0283 ==

== ENCOUNTER → 2024-07-30 12:10 | Outpatient (BNVA) | payer MEDICARE, OTHER, MEDICAID, SELFPAY | PROVIDERS: PCP Family Medicine; Visit Provider Registered Nurse Neonatal Intensive Care | DX: R30.0 Dysuria (principal) | CPT/HCPCS: 81000; 87086 ==

== ENCOUNTER → 2024-08-02 15:08 | Outpatient (BNVA) | payer MEDICARE, OTHER, MEDICAID, SELFPAY | PROVIDERS: PCP Family Medicine; Visit Provider Nurse Practitioner Family | DX: D48.5 Neoplasm of uncertain behavior of skin (principal) | CPT/HCPCS: 11102; 99213 ==

== ENCOUNTER → 2024-09-20 13:12 | Outpatient (BNVA) | payer MEDICARE, OTHER, MEDICAID, SELFPAY | PROVIDERS: PCP Family Medicine; Visit Provider Family Medicine | DX: Z13.220 Encounter for screening for lipoid disorders (principal); Z13.6 Encounter for screening for cardiovascular disorders; I10 Essential (primary) hypertension | CPT/HCPCS: 80048; 80061 ==

== ENCOUNTER 2024-12-05 06:00 | Outpatient (RCR) | payer MEDICARE, OTHER, SELFPAY | END 2024-12-29 23:59 | disposition home or self-care (01) | LOC: MPT 06:00 | PROVIDERS: PCP Family Medicine; Visit Provider Family Medicine | DX: M62.81 Muscle weakness (generalized) (principal) | CPT/HCPCS: 97110; 97112; 97162 ==

== ENCOUNTER 2024-12-30 06:30 | Outpatient (RCR) | payer MEDICARE, OTHER, SELFPAY | END 2025-01-26 23:59 | disposition home or self-care (01) | LOC: MPT 06:30 | PROVIDERS: PCP Family Medicine; Visit Provider Family Medicine | DX: M62.81 Muscle weakness (generalized) (principal) | CPT/HCPCS: 97110; 97112 ==

== ENCOUNTER 2025-01-27 06:00 | Outpatient (RCR) | payer MEDICARE, OTHER, MEDICAID, SELFPAY | END 2025-02-26 23:59 | disposition home or self-care (01) | LOC: MPT 06:00 | PROVIDERS: PCP Family Medicine; Visit Provider Family Medicine | DX: M62.81 Muscle weakness (generalized) (principal) | CPT/HCPCS: 97110; 97112 ==

== ENCOUNTER → 2025-02-26 14:41 | Outpatient (BNVA) | payer MEDICARE, OTHER, MEDICAID, SELFPAY | PROVIDERS: PCP Family Medicine; Referring Provider Nurse Practitioner; Visit Provider Nurse Practitioner | DX: R53.83 Other fatigue (principal); R63.0 Anorexia | CPT/HCPCS: 81000; 85025; 87086 ==

== ENCOUNTER 2025-02-27 06:00 | Outpatient (RCR) | payer MEDICARE, OTHER, MEDICAID, SELFPAY | END 2025-03-28 23:59 | disposition home or self-care (01) | LOC: MPT 06:00 | PROVIDERS: PCP Family Medicine; Visit Provider Family Medicine | DX: M62.81 Muscle weakness (generalized) (principal); R26.81 Unsteadiness on feet; M54.59 Other low back pain | CPT/HCPCS: 97110 ==

== ENCOUNTER 2025-03-29 05:00 | Outpatient (RCR) | payer MEDICARE, OTHER, MEDICAID, SELFPAY | END 2025-04-28 23:59 | disposition home or self-care (01) | LOC: MPT 05:00 | PROVIDERS: PCP Family Medicine; Visit Provider Family Medicine | DX: M62.81 Muscle weakness (generalized) (principal) | CPT/HCPCS: 97110 ==

== ENCOUNTER 2025-04-29 05:00 | Outpatient (RCR) | payer MEDICARE, OTHER, SELFPAY | END 2025-05-28 23:55 | disposition home or self-care (01) | LOC: MPT 05:00 | PROVIDERS: PCP Family Medicine; Visit Provider Family Medicine | DX: M54.50 Low back pain, unspecified (principal); G89.29 Other chronic pain | CPT/HCPCS: 97162 ==

== ENCOUNTER 2025-05-29 05:25 | Outpatient (RCR) | payer MEDICARE, OTHER, SELFPAY | END 2025-06-28 23:59 | disposition home or self-care (01) | LOC: MPT 05:25 | PROVIDERS: PCP Family Medicine; Visit Provider Family Medicine | DX: M54.50 Low back pain, unspecified (principal); G89.29 Other chronic pain | CPT/HCPCS: 97110; G0283 ==

== ENCOUNTER 2025-06-29 05:00 | Outpatient (RCR) | payer MEDICARE, OTHER, SELFPAY | END 2025-07-29 23:59 | disposition home or self-care (01) | LOC: MPT 05:00 | PROVIDERS: PCP Family Medicine; Visit Provider Family Medicine | DX: M54.59 Other low back pain (principal); G89.29 Other chronic pain | CPT/HCPCS: 97110; G0283 ==

== ENCOUNTER 2025-07-30 05:00 | Outpatient (RCR) | payer MEDICARE, OTHER, SELFPAY | END 2025-08-28 23:59 | disposition home or self-care (01) | LOC: MPT 05:00 | PROVIDERS: PCP Family Medicine; Visit Provider Family Medicine | DX: M54.50 Low back pain, unspecified (principal); G89.29 Other chronic pain | CPT/HCPCS: 97110; G0283 ==

== ENCOUNTER → 2025-08-22 14:13 | Outpatient (BNVA) | payer MEDICARE, OTHER, SELFPAY | PROVIDERS: PCP Family Medicine; Visit Provider Nurse Practitioner | DX: R30.0 Dysuria (principal); R31.9 Hematuria, unspecified | CPT/HCPCS: 81000; 87086 ==

== ENCOUNTER → 2025-09-21 14:57 | Outpatient (BNVA) | payer MEDICARE, OTHER, SELFPAY | PROVIDERS: PCP Family Medicine; Referring Provider Nurse Practitioner; Visit Provider Nurse Practitioner | DX: M47.896 Other spondylosis, lumbar region (principal); M48.07 Spinal stenosis, lumbosacral region | CPT/HCPCS: 72114 ==

== ENCOUNTER 2025-09-27 11:56 | Outpatient (RCR) | payer MEDICARE, OTHER, SELFPAY | END 2025-09-28 23:59 | disposition home or self-care (01) | LOC: MPT 11:56 | PROVIDERS: PCP Family Medicine; Visit Provider Family Medicine | DX: M54.50 Low back pain, unspecified (principal); G89.29 Other chronic pain | CPT/HCPCS: 97110; G0283 ==

== ENCOUNTER 2025-10-18 11:03 | Outpatient (RCR) | payer MEDICARE, OTHER, SELFPAY | END 2025-10-28 23:59 | disposition home or self-care (01) | LOC: MPT 11:03 | PROVIDERS: PCP Family Medicine; Visit Provider Family Medicine | DX: M54.50 Low back pain, unspecified (principal); G89.29 Other chronic pain | CPT/HCPCS: 97110; G0283 ==

== ENCOUNTER 2025-11-13 10:59 | Outpatient (RCR) | payer MEDICARE, OTHER, SELFPAY | END 2025-11-28 23:59 | disposition home or self-care (01) | LOC: MPT 10:59 | PROVIDERS: PCP Family Medicine; Visit Provider Family Medicine | DX: M54.50 Low back pain, unspecified (principal); G89.29 Other chronic pain | CPT/HCPCS: 97110; G0283 ==